=== PATIENT | male | born 2005 | race Caucasian/White ===

== ENCOUNTER 2023-08-12 16:40 | Outpatient (CLI) | payer BC, SELFPAY | END 2023-08-12 16:41 | disposition home or self-care (01) | PROVIDERS: Visit Provider Nurse Practitioner Family | DX: E10.9 Type 1 diabetes mellitus without complications (principal); E03.9 Hypothyroidism, unspecified | CPT/HCPCS: 80053; 84439; 84443 ==

== ENCOUNTER 2023-11-26 13:29 | Outpatient (CLI) | payer MEDICAID, SELFPAY ==
--- OUTSIDE RECORDS SUMMARY | 2023-11-26 13:34 | XMS_ITS | Clinical Summary ---
Author Organization [facility] Address [address] [place] [address]. [place] [address] Care Team Providers Care Caser In Name Role Phone Clinic, [facility] Agustin Primary Care Provider Allergies Active Allergy Reactions Criticality Noted Date Comments Amoxicillin Angioedema High 05/18/2017 Swelling in throat as baby after amoxicillin Penicillins Other (See Comments) High 05/18/2017 Per mom, patient has not had penicillin. They avoid it d/t swelling in throat as baby after amoxicillin. Medications Medication Sig Dispensed Refills Start Date End Date Status insulin lispro (HUMALOG KWIKPEN) 100 UNIT/ML injection Inject subcutaneously as needed (if insulin pump fails) Active Insulin Glargine (BASAGLAR KWIKPEN SC) Inject 18 Units Subcutaneous daily as needed If insulin pump failure Active levothyroxine (SYNTHROID/LEVOTHR OID) 112 MCG tablet Take 112 mcg by mouth daily Active INSULIN PUMP - OUTPATIENT Date Last Updated: 03/05/2023 [employer] BASAL RATES and times: 0.96 units/hour Carb ratio: 7 Active insulin lispro (HUMALOG VIAL) 100 UNIT/ML vial Inject subcutaneously See Admin Instructions insulin pump fill Active Active Problems Problem Noted Date Diagnosed Date DKA (diabetic ketoacidosis) 11/17/2023 Diabetic ketoacidosis withou t coma associated with type 1 diabetes mellitus 03/05/2023 Encounters Date Type Department Care Team Description 11/17/2023 2:26 PM CDT - 11/18/2023 3:22 PM CDT Hospital Encounter [facility] Med Surg [address] [place] [phone] Darrius Ba MD [facility], MD Samuel Discharge Disposition: Left Against Medical Advice 11/17/2023 6:50 AM CDT - 11/17/2023 2:01 PM CDT Emergency [facility] Emergency Dept [address] [place] [address] Kenzie Koroma MD Type 1 diabetes mellitus with ketoacidosis without coma (H); Leukocytosis, unspecified type; YADI (acute kidney injury) (H24) Discharge Disposition: Short Term Hospital 11/17/2023 Travel from Last 3 Months Social History Tobacco Use Types Packs/Day Years Used Date Smoking Tobacco: Passive Smo ke Exposure - Never Smoker Smokeless Tobacco: Never Alcohol Use Standard Drinks/Week Comments No 0 (1 standard drink = 0.6 oz pur e alcohol) Adolescent Education Answer Date Record ed Getting School Help Needed Not on file 02/23 Sex and Gender Information Value Date Recorded Sex Assigned at Not on file Gender Identity Not on file Sexual Orientation Not on file Last Filed Vital Signs Vital Sign Reading Time Taken Comments Blood Pressure 123/89 11/17/2023 11:51 PM CDT Pulse 79 11/17/2023 11:51 PM CDT Temperature 37.3 ??C (99.2 ??F) 11/18/2023 5:18 AM CD T Respiratory Rate 16 11/18/2023 5:18 AM CDT Oxygen Saturation 100% 11/17/2023 11:51 PM CDT Inhaled Oxygen Concentration - - Weight 47.6 kg (105 lb) 11/17/2023 6:47 AM CDT Height 162.6 cm (5' 4) 11/17/2023 6:47 AM CDT Body Mass Index 18.02 11/17/2023 6:47 AM CDT Plan of Treatment Health Maintenance Due Date Last Done Comments ADVANCE CARE PLANNING 2003 ANNUAL REVIEW OF HM ORDERS 2003 DIABETIC FOOT EXAM 2003 EYE EXAM 2003 LIPID 2003 MICROALBUMIN 2003 YEARLY PREVENTIVE VISIT 2003 Pneumococcal Vaccine: Pediatrics (0 to 5 Years) and At-Risk Patients (6 to 64 Years) (1 of 2 - PCV) 10/17/2009 02/11/2005, 09/04/2004, 03/05/2004, Additional history exists HIV SCREENING 10/17/2018 HPV IMMUNIZATION (1 - Male 3-dose series) 10/17/2018 HEPATITIS C SCREENING 10/17/2021 COVID-19 Vaccine (1 - season) 2023 PHQ-2 (once per calendar year) 2023 INFLUENZA VACCINE (#1) 2024 02/01/2019, 2011 A1C 02/17/2024 11/17/2023, 03/05/2023 TSH W/FREE T4 REFLEX 11/16/2024 11/17/2023, 11/17/19 24 BMP 11/17/2024 11/18/2023, 11/07, 11/17/2023, Additional history exists DTAP/TDAP/TD IMMUNIZATION (7 - Td or Tdap) 01/01/2027 01/01/2017, 01/09/2010, 02/11/2005, Additional history exists HEPATITIS B IMMUNIZATION Completed 005, 03/05/2004, 2003 IPV IMMUNIZATION Completed 01/09/2010, 09/2004, 03/05/2004, Additional history exists MENINGITIS IMMUNIZATION Aged Out 01/01/2017 No l onger eligible based on patient's age to complete this topic RSV MONOCLONAL ANTIBODY Aged Out No l onger eligible based on patient's age to complete this topic Procedures Procedure Name Priority Date/Time Associated Diagnosis Comments GLUCOSE BY METER Routine 11/18/2023 2:32 PM CDT GLUCOSE BY METER Routine 11/18/2023 1:57 PM CDT GLUCOSE BY METER Routine 11/18/2023 12:4 9 PM CDT GLUCOSE BY METER Routine 11/18/2023 11:4 7 AM CDT KETONE BETA-HYDROXYBUTYRATE QUANTITATIVE, RAPID Routine 11/18/2023 11:18 AM CDT BASIC METABOLIC PANEL Routine 11/18/2023 11:18 AM CDT GLUCOSE BY METER Routine 11/18/2023 11:1 3 AM CDT GLUCOSE BY METER Routine 11/18/2023 10:1 2 AM CDT GLUCOSE BY METER Routine 11/18/2023 8:33 AM CDT GLUCOSE BY METER Routine 11/18/2023 7:11 AM CDT GLUCOSE BY METER Routine 11/18/2023 6:31 AM CDT GLUCOSE BY METER Routine 11/18/2023 5:25 AM CDT PHOSPHORUS Timed 11/18/2023 5:25 AM CDT KETONE BETA-HYDROXYBUTYRATE QUANTITATIVE, RAPID Timed 11/18/2023 5:25 AM CDT CBC WITH PLATELETS Routine 11/18/2023 5: 25 AM CDT BASIC METABOLIC PANEL Timed 11/18/2023 5:25 AM CDT GLUCOSE BY METER Routine 11/18/2023 4:09 AM CDT GLUCOSE BY METER Routine 11/18/2023 2:53 AM CDT GLUCOSE BY METER Routine 11/18/2023 2:13 AM CDT GLUCOSE BY METER Routine 11/18/2023 1:13 AM CDT BASIC METABOLIC PANEL Timed 11/17/2023 11:47 PM CDT KETONE BETA-HYDROXYBUTYRATE QUANTITATIVE, RAPID Timed 11/17/2023 11:47 PM CDT PHOSPHORUS Timed 11/17/2023 11:47 PM CDT GLUCOSE BY METER Routine 11/17/2023 11:4 6 PM CDT GLUCOSE BY METER Routine 11/17/2023 11:2 9 PM CDT GLUCOSE BY METER Routine 11/17/2023 10:3 2 PM CDT BLOOD GAS VENOUS Timed 11/17/2023 10:0 5 PM CDT PHOSPHORUS Timed 11/17/2023 10:05 PM CDT KETONE BETA-HYDROXYBUTYRATE QUANTITATIVE, RAPID Timed 11/17/2023 10:05 PM CDT BASIC METABOLIC PANEL Timed 11/17/2023 10:05 PM CDT GLUCOSE BY METER Routine 11/17/2023 9:30 PM CDT GLUCOSE BY METER Routine 11/17/2023 8:35 PM CDT GLUCOSE BY METER Routine 11/17/2023 7:35 PM CDT GLUCOSE BY METER Routine 11/17/2023 6:39 PM CDT BLOOD GAS VENOUS Timed 11/17/2023 6:12 PM CDT PHOSPHORUS Timed 11/17/2023 6:09 PM CDT KETONE BETA-HYDROXYBUTYRATE QUANTITATIVE, RAPID Timed 11/17/2023 6:09 PM CDT BASIC METABOLIC PANEL Timed 11/17/2023 6:09 PM CDT ROUTINE UA WITH MICROSCOPIC REFLEX TO CULTURE Routine 11/17/2023 5:50 PM CDT GLUCOSE BY METER Routine 11/17/2023 5:34 PM CDT GLUCOSE BY METER Routine 11/17/2023 4:33 PM CDT EKG 12-LEAD, TRACING ONLY Routine 11/17/2023 3:43 PM CDT CBC WITH PLATELETS & DIFFERENTIAL STAT 11/17/2023 3:39 PM CDT BLOOD GAS VENOUS STAT 11/17/2023 3:39 PM CDT CBC WITH PLATELETS AND DIFFERENTIAL STAT 11/17/2023 3:39 PM CDT LACTIC ACID WHOLE BLOOD STAT 11/17/2023 3:39 PM CDT HEPATIC FUNCTION PANEL STAT 11/17/2023 3:39 PM CDT MAGNESIUM STAT 11/17/2023 3:39 PM CDT PHOSPHORUS STAT 11/17/2023 3:39 PM CDT OSMOLALITY STAT 11/17/2023 3:39 PM CDT KETONE BETA-HYDROXYBUTYRATE QUANTITATIVE, RAPID STAT 11/17/2023 3:39 PM CDT BASIC METABOLIC PANEL STAT 11/17/2023 3:39 PM CDT GLUCOSE BY METER Routine 11/17/2023 3:28 PM CDT GLUCOSE BY METER Routine 11/17/2023 2:30 PM CDT GLUCOSE BY METER STAT 11/17/2023 1:02 PM CDT GLUCOSE BY METER STAT 11/17/2023 12:0 8 PM CDT GLUCOSE BY METER STAT 11/17/2023 11:0 9 AM CDT GLUCOSE BY METER STAT 11/17/2023 10:2 4 AM CDT GLUCOSE BY METER STAT 11/17/2023 9:32 AM CDT LACTIC ACID WHOLE BLOOD STAT 11/17/2023 8:51 AM CDT XR CHEST PORT 1 VIEW STAT 11/17/2023 7:43 AM CDT ISTAT GASES LACTATE VENOUS POCT STAT 11/17/2023 7:05 AM CDT CBC WITH PLATELETS & DIFFERENTIAL STAT 11/17/2023 6:58 AM CDT T4 FREE STAT 11/17/2023 6:58 AM CDT MANUAL DIFFERENTIAL STAT 11/17/2023 6 :58 AM CDT TSH WITH FREE T4 REFLEX STAT 11/17/2023 6:58 AM CDT CBC WITH PLATELETS AND DIFFERENTIAL STAT 11/17/2023 6:58 AM CDT LIPASE STAT 11/17/2023 6:58 AM CDT MAGNESIUM STAT 11/17/2023 6:58 AM CDT BASIC METABOLIC PANEL STAT 11/17/2023 6:58 AM CDT KETONE BETA-HYDROXYBUTYRATE QUANTITATIVE, RAPID STAT 11/17/2023 6:58 AM CDT HEMOGLOBIN A1C STAT 11/17/2023 6:58 AM CDT EXTRA HEPARINIZED SYRINGE STAT 11/17/2023 6:58 AM CDT EXTRA PURPLE TOP TUBE STAT 11/17/2023 6:58 AM CDT EXTRA GREEN TOP (LITHIUM HEPARIN) TUBE STAT 11/17/2023 6:58 AM CDT EXTRA RED TOP TUBE STAT 11/17/2023 6: 58 AM CDT EKG 12-LEAD, TRACING ONLY STAT 11/17/2023 6:53 AM CDT GLUCOSE BY METER STAT 11/17/2023 6:47 AM CDT from Last 3 Months Results * (ABNORMAL) Glucose by meter (11/18/2023 2:32 PM CDT) Only the most recent of31 resultswithin the time period is included. GLUCOSE BY METER POCT 118(H) 70 - 99 mg/dL 11/18/2023 2:39 PM CDT UR LAB[facility]ATORY POC Blood, Capillary BLOOD SPECIMEN / Unknown 11/18/2023 2:32 PM CDT 11/18/2023 2:39 PM CDT Darrius Ba MD LAB - BEAKER POCT UR LAB[facility]ATORY POC [facility] [address] [place] [address], [address] * (ABNORMAL) Ketone Beta-Hydroxybutyrate Quantitative (11/18/2023 11:18 AM CDT) Only the most recent of7 resultswithin the time period is included. Ketone (Beta-Hydroxybut yrate) Quantitative 2.70(HH) <=0.30 mmol/L 11/18/2023 12:21 PM CDT UR LAB[facility]ATORY Blood STRUCTURE OF RIGHT UPPER LIMB / Unknown Venipuncture / Unknown 11/18/2023 11:18 AM CDT 11/18/2023 11:38 AM CDT Jocelynn Grover PA-C LAB - BLOOD ORDERABL ES Performing Organization Address City/[facility]/ZIP Co de Phone Number UR LABORATORY [facility] [address] [place] [address], [address] * (ABNORMAL) Basic metabolic panel (11/18/2023 11:18 AM CDT) Only the most recent of7 resultswithin the time period is included. Sodium 145 135 - 145 mmol/L 11/18/2023 11:59 AM CDT UR LABORATORY Potassium 3.5 3.4 - 5.3 mmol/L 11/18/2023 11:59 AM CDT UR LAB[facility]ORY Chloride 112(H) 98 - 107 mmol/L 11/18/2023 11:59 AM CDT UR [facility] Carbon Dioxide (CO2) 21(L) 22 - 29 mmol/L 11/18/2023 11:59 AM CDT UR LAB[facility]ORY Anion Gap 12 7 - 15 mmol/L 11/18/2023 11:59 AM CDT [facility] Urea Nitrogen 13.8 6.0 - 20.0 mg/dL 11/18/2023 11:59 AM CDT UR LAB[facility]ATORY Creatinine 0.76 0.67 - 1.17 mg/dL 11/18/2023 11:59 AM CDT UR LAB[facility]ATORY GFR Estimate >90 >60 mL/min/1.7 3m2 11/18/2023 11:59 AM CDT [facility] LAB[facility] Comment:eGFR calculated 2020 CKD-EPI equation. Calcium 9.3 8.6 - 10.0 mg/dL 11/18/2023 11:59 AM CDT UR LAB[facility]ATORY Glucose 113(H) 70 - 99 mg/dL 11/18/2023 11:59 AM CDT UR [facility] Blood STRUCTURE OF RIGHT UPPER LIMB / Unknown Venipuncture / Unknown 11/18/2023 11:18 AM CDT 11/18/2023 11:38 AM CDT Jocelynn Grover PA-C LAB - BLOOD ORDERABL ES UR LABORATORY [facility] [address] [facility], [address] [place] [address], [facility] * (ABNORMAL) Phosphorus (11/18/2023 5:25 AM CDT) Only the most recent of5 resultswithin the time period is included. Phosphorus 1.0(L) 2.5 - 4.5 mg/dL 11/18/2023 6:41 AM CDT [facility] Blood STRUCTURE OF RIGHT HAND / Unknown Venipuncture / Unknown 11/18/2023 5:25 AM CDT 11/18/2023 6:11 AM CDT Darrius Ba MD LAB - BLOOD ORDERA BLES UR LABORATORY [facility] [address] [place] [address], [address] [phone] * (ABNORMAL) CBC with platelets (11/18/2023 5:25 AM CDT) Pathologist [facility] WBC Count 12.8(H) 4.0 - 11.0 10e3/uL 11/18/2023 6:22 AM CDT UR LAB[facility]ATORY RBC Count 4.39(L) 4.40 - 5.90 10e6/uL 11/18/2023 6:22 AM CDT [facility] Hemoglobin 13.7 13.3 - 17.7 g/dL 11/18/2023 6:22 AM CDT UR LAB[facility]ORY Hematocrit 39.3(L) 40.0 - 53.0 % 11/18/2023 6:22 AM CDT UR LAB[facility]ORY MCV 90 78 - 100 fL 11/18/2023 6:22 AM CDT UR LAB[facility]ORY MCH 31.2 26.5 - 33.0 pg 11/18/2023 6:22 AM CDT UR LAB[facility] MCHC 34.9 31.5 - 36.5 g/dL 11/18/2023 6:22 AM CDT UR LAB[facility]ORY RDW 12.1 10.0 - 15.0 % 11/18/2023 6:22 AM CDT UR LAB[facility] Platelet Count 257 150 - 450 10e3/uL 11/18/2023 6:22 AM CDT UR LAB[facility] Blood STRUCTURE OF RIGHT HAND / Unknown Venipuncture / Unknown 11/18/2023 5:25 AM CDT 11/18/2023 6:11 AM CDT Darrius Ba MD LAB - BLOOD ORDERA BLES UR LABORATORY [facility] [facility], [address] [place] [address] * (ABNORMAL) Blood gas venous (11/17/2023 10:05 PM CDT) Only the most recent of3 resultswithin the time period is included. pH Venous 7.34 7.32 - 7.43 11/17/2023 10:11 PM CDT UR LAB[facility]ORY pCO2 Venous 37(L) 40 - 50 mm Hg 11/17/2023 10:11 PM CDT UR LAB[facility] pO2 Venous 38 25 - 47 mm Hg 11/17/2023 10:11 PM CDT [facility] Bicarbonate Venous 20(L) 21 - 28 mmol/L 11/17/2023 10:11 PM CDT UR LAB[facility]ORY Base Excess/Deficit Venous -5.4(L) -3.0 - 3.0 mmol/L 11/17/2023 10:11 PM CDT UR LAB[facility]ATORY FIO2 21 RENÉ 11/17/2023 10:11 PM CDT [facility] LAB[facility]ORY Oxyhemoglobin Venous 77(H) 70 - 75 % 11/17/2023 10:11 PM CDT [facility] O2 Sat, Venous 78.3(H) 70.0 - 75.0 % 11/17/2023 10:11 PM CDT [facility] LAB[facility] Blood, venous STRUCTURE OF RIGHT UPPER LIMB / Unknown Venipuncture / Unknown 11/17/2023 10:05 PM CDT 11/17/2023 10:10 PM CDT Narrative UR LABORATORY - 11/17/2023 10:11 PM CDT In healthy individuals, oxyhemoglobin (O2Hb) and oxygen saturation (SO2) are approximately equal. In the presence of dyshemoglobins, oxyhemoglobin can be considerably lower than oxygen saturation. Zahida RICHARDSON LAB - BLOOD ORDERABL ES UR LABORATORY [facility] [address] [facility], [address] [place] [address] * (ABNORMAL) UA with Microscopic reflex to Culture (11/17/2023 5:50 PM CDT) Color Urine Yellow Colorless, Straw, Light Yellow, Yellow 11/17/2023 6:13 PM CDT UR LAB[facility] Appearance Urine Clear Clear 11/17/19 24 6:13 PM CDT UR LAB[facility]ORY Glucose Urine 300(A) Negative mg/dL 11/17/2023 6:13 PM CDT UR [facility] Bilirubin Urine Negative Negative 6:13 PM CDT UR LAB[facility]ATORY Ketones Urine 40(A) Negative mg/dL 11/17/2023 6:13 PM CDT UR LAB[facility]ATORY Specific Morris Urine 1.023 1.003 - 1.035 11/17/2023 6:13 PM CDT UR LAB[facility]ORY Blood Urine Moderate(A) Negative 11/17/2023 6:13 PM CDT UR LAB[facility] pH Urine 6.5 5.0 - 7.0 11/17/2023 6:13 PM CDT [facility] LAB[facility] Protein Albumin Urine >600(A) Negative mg/dL 11/17/2023 6:13 PM CDT [facility] LAB[facility] Urobilinogen Urine Normal Normal, 2.0 mg/dL 11/17/2023 6:13 PM CDT [facility] LAB[facility] Nitrite Urine Negative Negative 11/17/2023 6:13 PM CDT [facility] LAB[facility] Leukocyte Esterase Urine Negative Negative 11/17/2023 6:13 PM CDT UR LAB[facility] Mucus Urine Present(A) None Seen /LPF 11/17/2023 6:13 PM CDT UR LAB[facility] RBC Urine 1 <=2 /HPF 11/17/2023 6:13 PM CDT UR LAB[facility] WBC Urine 7(H) <=5 /HPF 11/17/2023 6:13 PM CDT UR LAB[facility]ORY Hyaline Casts Urine 9(H) <=2 /LPF 11/17/2023 6:13 PM CDT UR LAB[facility]ORY Urine URINE SPECIMEN OBTAINED BY CLEAN CATCH PROCEDURE / Unknown Non-blood Collection / Unknown 11/17/2023 5:50 PM CDT 11/17/2023 5:59 PM CDT Narrative UR LAB[facility]ATORY - 11/17/2023 6:13 PM CDT Urine Culture not indicated Zahida RICHARDSON LAB - URINE ORDERABL ES UR LABORATORY [facility] [address] [facility], [address] [place] [address], [facility] * EKG 12-lead, tracing only - DKA (11/17/2023 3:43 PM CDT) Only the most recent of2 resultswithin the time period is included. Systolic Blood Pressure mmHg RADIOLOGY RESULTS Diastolic Blood Pressure mmHg RADIOLOGY RESULTS Ventricular Rate 81 BPM RAD IOLOGY RESULTS Atrial Rate 81 BPM RADIOLOG Y RESULTS WY Interval 116 ms RADIOLOG Y RESULTS QRS Duration 80 ms RADIOLO GY RESULTS QT 366 ms RADIOLOGY RESULTS QTc 425 ms RADIOLOGY RESULTS P [employer] 83 degrees RADIOLOGY RESULTS R AXIS 52 degrees RADIOLOGY RESULTS T [employer] 64 degrees RADIOLOGY RESULTS Interpretation ECG Sinus rhythm When compared with ECG of 17-NOV-2023 06:53, Vent. rate has decreased BY ??54 BPM Non-specific change in ST segment in Inferior leads ST elevation now present in Lateral leads Nonspecific T wave abnormality no longer evident in Lateral leads Confirmed by MD ALISSA, JESS ([id number]) on 11/18/2023 10:08:33 AM RADIOLOGY RESULTS 11/17/2023 3:43 PM CDT 11/18/2023 10:08 AM CDT Zahida RICHARDSON ECG ORDERABLES RADIOLOGY RESULTS * (ABNORMAL) CBC with platelets and differential (11/17/2023 3:39 PM CDT) Only the most recent of2 resultswithin the time period is included. WBC Count 15.1(H) 4.0 - 11.0 10e3/uL 11/17/2023 3:50 PM CDT UR LAB[facility]ATORY RBC Count 4.75 4.40 - 5.90 10e6/uL 11/17/2023 3:50 PM CDT UR LAB[facility]ORY Hemoglobin 14.9 13.3 - 17.7 g/dL 11/17/2023 3:50 PM CDT UR LAB[facility]ATORY Hematocrit 42.4 40.0 - 53.0 % 11/17/2023 3:50 PM CDT UR LAB[facility]ATORY MCV 89 78 - 100 fL 11/17/2023 3:50 PM CDT UR LAB[facility]ATORY MCH 31.4 26.5 - 33.0 pg 11/17/2023 3:50 PM CDT UR LAB[facility]ORY MCHC 35.1 31.5 - 36.5 g/dL 11/17/2023 3:50 PM CDT UR LAB[facility]ORY RDW 11.9 10.0 - 15.0 % 11/17/2023 3:50 PM CDT UR LAB[facility] Platelet Count 298 150 - 450 10e3/uL 11/17/2023 3:50 PM CDT UR LAB[facility] % Neutrophils 85 % 11/17/2023 3:50 PM CDT UR [facility] % Lymphocytes 6 % 11/17/2023 3:50 PM CDT UR [facility] % Monocytes 7 % 11/17/2023 3:50 PM CDT UR [facility] % Eosinophils 0 % 11/17/2023 3:50 PM CDT UR [facility] % Basophils 0 % 11/17/2023 3:50 PM CDT UR LAB[facility] % Immature Granulocytes 2 % 11/17/2023 3:50 PM CDT UR LAB[facility]ATORY NRBCs per 100 WBC 0 <1 /100 024 3:50 PM CDT UR LAB[facility]ATORY Absolute Neutrophils 12.8(H) 1.6 - 8.3 10e3/uL 11/17/2023 3:50 PM CDT UR LAB[facility]ORY Absolute Lymphocytes 0.9 0.8 - 5.3 10e3/uL 11/17/2023 3:50 PM CDT UR LAB[facility] Absolute Monocytes 1.0 0.0 - 1.3 10e3/uL 11/17/2023 3:50 PM CDT UR LAB[facility]ORY Absolute Eosinophils 0.0 0.0 - 0.7 10e3/uL 11/17/2023 3:50 PM CDT UR LAB[facility]ORY Absolute Basophils 0.0 0.0 - 0.2 10e3/uL 11/17/2023 3:50 PM CDT UR LAB[facility] Absolute Immature Granulocytes 0.3 <=0.4 10e3/uL 11/17/2023 3:50 PM CDT UR LAB[facility]ORY Absolute NRBCs 0.0 10e3/uL 11/17/2023 3:50 PM CDT UR LAB[facility]ORY Blood STRUCTURE OF RIGHT UPPER LIMB / Unknown Venipuncture / Unknown 11/17/2023 3:39 PM CDT 11/17/2023 3:46 PM CDT Zahida RICHARDSON LAB - BLOOD ORDERABL ES UR LABORATORY [facility] [address] [facility], [address] [place] [phone] [place] [address] * (ABNORMAL) Osmolality (11/17/2023 3:39 PM CDT) Pathologist [facility] Osmolality Blood 310(H) 275 - 295 mmol/kg 11/17/2023 4:13 PM CDT UR LABORATORY Blood STRUCTURE OF RIGHT UPPER LIMB / Unknown Venipuncture / Unknown 11/17/2023 3:39 PM CDT 11/17/2023 3:47 PM CDT Narrative UR LABORATORY - 11/17/2023 4:13 PM CDT Greater than 385 mmol/kg relates to stupor in hyperglycemia Greater than 400 mmol/kg can relate to seizures Greater than 420 mmol/kg can be lethal Serum Osmalar Gap: Normal <10 Larger suggest unmeasured substances present in serum (ethanol, methanol, isopropanol, mannitol, ethylene glycol). Zahida RICHARDSON LAB - BLOOD ORDERABL ES Performing Organization Address City/[facility]/ZIP Co de Phone Number UR LABORATORY [facility] [address] [place] [address], [address] * Magnesium (11/17/2023 3:39 PM CDT) Only the most recent of2 resultswithin the time period is included. [facility] Magnesium 2.2 1.7 - 2.3 mg/dL 11/17/2023 5:26 PM CDT UR LABORATORY Blood STRUCTURE OF RIGHT UPPER LIMB / Unknown Venipuncture / Unknown 11/17/2023 3:39 PM CDT 11/17/2023 5:08 PM CDT Zahida RICHARDSON LAB - BLOOD ORDERABL ES UR LABORATORY [facility] [address] [place] [address], Room [place] [id number] * Lactic acid whole blood (11/17/2023 3:39 PM CDT) Only the most recent of2 resultswithin the time period is included. [facility] Lactic Acid 1.1 0.7 - 2.0 mmol/L 11/17/2023 3:49 PM CDT UR LAB[facility]ATORY Blood STRUCTURE OF RIGHT UPPER LIMB / Unknown Venipuncture / Unknown 11/17/2023 3:39 PM CDT 11/17/2023 3:46 PM CDT Zahida RICHARDSON LAB - BLOOD ORDERABL ES UR LABORATORY [facility] [address] [facility], [address] [place] [address] * (ABNORMAL) Hepatic panel (11/17/2023 3:39 PM CDT) Protein Total 6.0(L) 6.4 - 8.3 g/dL 11/17/2023 5:26 PM CDT UR LAB[facility]ATORY Albumin 3.7 3.5 - 5.2 g/dL 11/17/2023 5:26 PM CDT UR LAB[facility]ATORY Bilirubin Total 0.4 <=1.2 mg/dL 11/17/2023 5:26 PM CDT UR LAB[facility]ORY Alkaline Phosphatase 94 40 - 150 U/L 11/17/2023 5:26 PM CDT UR LAB[facility]ATORY AST 17 0 - 45 U/L 11/17/2023 5:26 PM CDT UR LAB[facility]ATORY Comment:Reference intervals for this test were updated on 10/19/2022 to more accurately reflect our healthy population. There may be differences in the flagging of prior results with similar values performed with this method. Interpretation of those prior results can be made in the context of the updated reference intervals. ALT 11 0 - 70 U/L 11/17/2023 5:26 PM CDT UR LAB[facility]ORY Comment:Reference intervals for this test were updated on 10/19/2022 to more accurately reflect our healthy population. There may be differences in the flagging of prior results with similar values performed with this method. Interpretation of those prior results can be made in the context of the updated reference intervals. Bilirubin Direct <0.20 0.00 - 0.30 mg/dL 11/17/2023 5:26 PM CDT UR LAB[facility]ORY Blood STRUCTURE OF RIGHT UPPER LIMB / Unknown Venipuncture / Unknown 11/17/2023 3:39 PM CDT 11/17/2023 5:08 PM CDT Zahida RICHARDSON LAB - BLOOD ORDERABL ES UR LABORATORY [facility] [address] [facility], [address] [place] [phone] * XR Chest Port 1 View (11/17/2023 7:43 AM CDT) Anatomical Region Laterality Modality Chest Digital Radiogra phy Impressions 11/17/2023 7:49 AM CDT IMPRESSION: Negative chest. EMELY CUEVA MD SYSTEM ID: [id number] Narrative 11/17/2023 7:49 AM CDT XR CHEST PORT 1 VIEW 11/17/2023 7:43 AM ?? INDICATION: DKA, vomiting, tachycardic COMPARISON: 03/05/2023 Procedure Note Emely Cueva MD - 11/17/2023 XR CHEST PORT 1 VIEW 11/17/2023 7:43 AM INDICATION: DKA, vomiting, tachycardic COMPARISON: 03/05/2023 IMPRESSION: Negative chest. EMELY CUEVA MD SYSTEM ID: [id number] Kenzie Koroma MD IMG DIAGNOSTIC I MAGING ORDERABLES * (ABNORMAL) iStat Gases (lactate) venous, POCT (11/17/2023 7:05 AM CDT) Lactic Acid POCT 5.7(HH) <=2.0 mmol/L 11/17/2023 7:26 AM CDT [facility] Comment:--- Bicarbonate Venous POCT 11(L) 21 - 28 mmol/L 11/17/2023 7:26 AM CDT [facility] Comment:--- O2 Sat, Venous POCT 52(L) 70 - 75 % 11/17/2023 7:26 AM CDT [facility] Comment:--- pCO2 Venous POCT 33(L) 40 - 50 mm Hg 11/17/2023 7:26 AM CDT [facility] Comment:--- pH Venous POCT 7.15(LL) 7.32 - 7.43 11/17/2023 7:26 AM CDT [facility] Comment:--- pO2 Venous POCT 35 25 - 47 mm Hg 11/17/2023 7:26 AM CDT [facility] Comment:--- Blood, venous BLOOD SPECIMEN / Unknown 11/17/2023 7:05 AM CDT 11/17/2023 7:26 AM CDT Kenzie Koroma MD LAB - [facility] POC T [facility] P[facility] [address] [facility] (1st floor, no room number) [place] [id number] * (ABNORMAL) Manual Differential (11/17/2023 6:58 AM CDT) % Neutrophils 77 % RENÉ 11/19/2023 10:28 AM CDT [facility] % Lymphocytes 10 % RENÉ 11/19/2023 10:28 AM CDT [facility] % Monocytes 12 % RENÉ 11/19/2023 10:28 AM CDT [facility] % Eosinophils 0 % RENÉ 11/19/2023 10:28 AM CDT [facility] % Basophils 0 % RENÉ 11/19/2023 10:28 AM CDT [facility] % Metamyelocytes 1 % RENÉ 11/19/2023 10:28 AM CDT [facility] Absolute Neutrophils 21.6(H) 1.6 - 8.3 10e3/uL RENÉ 11/19/2023 10:28 AM CDT [facility] Absolute Lymphocytes 2.8 0.8 - 5.3 10e3/uL RENÉ 11/19/2023 10:28 AM CDT [facility] Absolute Monocytes 3.4(H) 0.0 - 1.3 10e3/uL RENÉ 11/19/2023 10:28 AM CDT [facility] Absolute Eosinophils 0.0 0.0 - 0.7 10e3/uL RENÉ 11/19/2023 10:28 AM CDT [facility] Absolute Basophils 0.0 0.0 - 0.2 10e3/uL RENÉ 11/19/2023 10:28 AM CDT [facility] Absolute Metamyelocytes 0.3(H) <=0.0 10e3/uL [facility] 11/19/2023 10:28 AM CDT [facility] RBC Morphology Confirmed RBC Indices [facility] 11/19/2023 10:28 AM CDT [facility] Platelet Assessment Automated Count Confirmed. Platelet morphology is normal. Automated Count Confirmed. Platelet morphology is normal. [facility] 11/19/2023 10:28 AM CDT [facility] Pathologist Review Comments (Blood) [facility] 11/19/2023 10:28 AM CDT [facility] Comment:Reviewed and Differe ntial is confirmed. No additional comments. Slide reviewed by pathologist, Prem Jernigan MD on 11/18/2023. Blood BLOOD SPECIMEN / Unknown Venipuncture / Unknown 11/17/2023 6:58 AM CDT 11/17/2023 7:02 AM CDT Narrative [facility] - 11/19/2023 10:28 AM CDT Manual Differential results were performed, reported preliminary, and deferred by Tech. FIELDS on 11/17/23 Kenzie Koroma MD LAB - BLOOD DOREEN DALEY [facility] Lab [address] Lab (1st floor, no room number) [place] [address] * Extra Heparinized Syringe (11/17/2023 6:58 AM CDT) Hold Specimen RECEIVED. 11/17/2023 7:29 AM CDT [facility] Blood, venous BLOOD SPECIMEN / Unknown Venipuncture / Unknown 11/17/2023 6:58 AM CDT 11/17/2023 7:06 AM CDT Kenzie Koroma MD LAB - BLOOD DOREEN DALEY [facility] [address] Lab (1st floor, no room number) [place] [address] * Extra Purple Top Tube (11/17/2023 6:58 AM CDT) Hold Specimen JIC 11/17/2023 8:06 AM CDT [facility] Blood BLOOD SPECIMEN / Unknown Venipuncture / Unknown 11/17/2023 6:58 AM CDT 11/17/2023 7:02 AM CDT Kenzie Koroma MD LAB - BLOOD DOREEN DALEY [facility] [address] Lab (1st floor, no room number) [address] * Extra Green Top ([place] Heparin) Tube (11/17/2023 6:58 AM CDT) Hold Specimen [facility] 11/17/2023 8:06 AM CDT [facility] Blood BLOOD SPECIMEN / Unknown Venipuncture / Unknown 11/17/2023 6:58 AM CDT 11/17/2023 7:02 AM CDT Kenzie Koroma MD LAB - BLOOD DOREEN DALEY [facility] Lab [address] Lab (1st floor, no room number) [address] * Extra Red Top Tube (11/17/2023 6:58 AM CDT) Hold Specimen [facility] 11/17/2023 8:06 AM CDT [facility] Blood BLOOD SPECIMEN / Unknown Venipuncture / Unknown 11/17/2023 6:58 AM CDT 11/17/2023 7:01 AM CDT Kenzie Koroma MD LAB - BLOOD DOREEN DALEY [facility] [address] Lab (1st floor, no room number) [address] * (ABNORMAL) TSH with free T4 reflex (11/17/2023 6:58 AM CDT) TSH 5.54(H) 0.30 - 4.20 uIU/mL 11/17/2023 8:05 AM CDT [facility] Blood BLOOD SPECIMEN / Unknown Venipuncture / Unknown 11/17/2023 6:58 AM CDT 11/17/2023 7:02 AM CDT Kenzie Koroma MD LAB - BLOOD DOREEN DALEY [facility] [address] Lab (1st floor, no room number) [place] [address], [facility] * T4 free (11/17/2023 6:58 AM CDT) [facility] Free T4 1.00 0.90 - 1.70 ng/dL 11/17/2023 9:06 AM CDT [facility] Blood BLOOD SPECIMEN / Unknown Venipuncture / Unknown 11/17/2023 6:58 AM CDT 11/17/2023 7:02 AM CDT Kenzie Koroma MD LAB - BLOOD DOREEN DALEY [facility] [address] Lab (1st floor, no room number) [place] [address], [facility] * (ABNORMAL) Lipase (11/17/2023 6:58 AM CDT) [facility] Lipase 12(L) 13 - 60 U/L 11/17/2023 7:26 AM CDT [facility] Blood BLOOD SPECIMEN / Unknown Venipuncture / Unknown 11/17/2023 6:58 AM CDT 11/17/2023 7:02 AM CDT Kenzie Koroma MD LAB - BLOOD DOREEN DALEY [facility] [address] Lab (1st floor, no room number) [place] [address] * (ABNORMAL) Hemoglobin A1c (11/17/2023 6:58 AM CDT) Hemoglobin A1C 12.9(H) <5.7 % 11/17/2023 10:12 AM CDT LABORATORY Comment: Normal <5.7% Prediabetes 5.7-6.4% ?? Diabetes 6.5% or higher Note: Adopted from ADA consensus guidelines. Blood BLOOD SPECIMEN / Unknown Venipuncture / Unknown 11/17/2023 6:58 AM CDT 11/17/2023 7:02 AM CDT Kenzie Koroma MD LAB - BLOOD DOREEN DALEY LABORATORY [facility] [address] Lab (1st floor, no room number) [place] [address], [facility] from Last 3 Months Advance Directives For more information, please contact: [phone] * Full Code (Latest Code Status on File) Date Activated Date Inactivated Comments 11/17/2023 3:49 PM 11/18/2023 5:22 PM All basic an d advanced life-sustaining interventions are performed as appropriate Question Answer Comments Code status determined by: Discussion with racquel joseph/ legal decision maker * Full Code Date Activated Date Inactivated Comments 03/05/2023 12:49 PM 03/06/2023 2:49 PM All basic and advanced life-sustaining interventions are performed as appropriate Question Answer Comments Code status determined by: Discussion with racquel joseph/ legal decision maker Care Teams Caser In Relationship Specialty Start Date End Date Clinic, [facility] [address] [place] [address] PCP - General 05/18/17
--- OUTSIDE RECORDS SUMMARY | 2023-11-26 13:34 | XMS_ITS | Referral Summary ---
Author Organization [facility] Address [address] [place] [address]. [place] [address] Care Team Providers Care Test Carrier Name Role Phone Clinic, [facility] Primary Care Provider Encounters Date Type Department Care Team Description 11/17/2023 2:26 PM CDT - 11/18/2023 3:22 PM CDT Hospital Encounter [facility] [address] [place] [phone] Darrius Ba MD [facility], MD Samuel Discharge Disposition: Left Against Medical Advice 11/17/2023 Travel 11/17/2023 6:50 AM CDT - 11/17/2023 2:01 PM CDT Emergency [facility] Emergency Dept [address] [place] [address] Kenzie Koroma MD Type 1 diabetes mellitus with ketoacidosis without coma (H); Leukocytosis, unspecified type; YADI (acute kidney injury) (H24) Discharge Disposition: Short Term Hospital from Last 3 Months Allergies Active Allergy Reactions Criticality Noted Date [...] associated with type 1 diabetes mellitus 03/05/2023 Social History Tobacco Use Types Packs/Day Years [...] 11/17/2023 6:47 AM CDT Plan of Treatment Not on file Procedures Procedure Name Priority Date/Time Associated Diagnosis [...] 11/18/2023 2:39 PM CDT Darrius Ba MD [facility] POCT UR LABORATORY POC [facility], [address] [place] [address] * (ABNORMAL) Ketone Beta-Hydroxybutyrate Quantitative (11/18/2023 11:18 AM CDT) Only the most recent of7 resultswithin the time period is included. Ketone (Beta-Hydroxybut yrate) Quantitative 2.70(HH) <=0.30 mmol/L 11/18/2023 12:21 PM CDT UR LAB[facility]ATORY Blood STRUCTURE OF RIGHT UPPER LIMB / Unknown Venipuncture / Unknown 11/18/2023 11:18 AM CDT 11/18/2023 11:38 AM CDT Jocelynn Grover PA-C LAB - BLOOD ORDERABL ES UR LABORATORY [facility] [address] [facility], [address] [phone] * (ABNORMAL) Basic metabolic panel (11/18/2023 11:18 [...] 11:59 AM CDT [facility] LAB[facility] Comment:eGFR calculated usin 2020 CKD-EPI equation. Calcium 9.3 8.6 - 10.0 mg/dL 11/18/2023 11:59 AM CDT [facility] Glucose 113(H) 70 - 99 mg/dL 11/18/2023 11:59 AM CDT [facility] Blood STRUCTURE OF RIGHT UPPER LIMB / Unknown Venipuncture / Unknown 11/18/2023 11:18 AM CDT 11/18/2023 11:38 AM CDT Jocelynn Grover PA-C LAB - BLOOD ORDERABL ES UR LABORATORY [facility] [address] [facility], [address] [place] [address] * (ABNORMAL) Phosphorus (11/18/2023 5:25 AM CDT) Only the most recent of5 resultswithin the time period is included. Phosphorus 1.0(L) 2.5 - 4.5 mg/dL 11/18/2023 6:41 AM CDT UR LAB[facility]ATORY Blood STRUCTURE OF RIGHT HAND / Unknown Venipuncture / Unknown 11/18/2023 5:25 AM CDT 11/18/2023 6:11 AM CDT Darrius Ba MD LAB - BLOOD ORDERA BLES UR LABORATORY [facility] [address] [facility], [address] [place] [address] * (ABNORMAL) CBC with platelets (11/18/2023 5:25 AM CDT) WBC Count 12.8(H) 4.0 - 11.0 10e3/uL [...] - BLOOD ORDERA BLES UR LABORATORY [facility] [address] [facility] [place] [address] * (ABNORMAL) Blood gas venous (11/17/2023 10:05 [...] - BLOOD ORDERABL ES UR LABORATORY [facility] Lab [address] [facility], [address] [place] [address], [facility] * (ABNORMAL) UA with Microscopic reflex to [...] 11/17/2023 6:13 PM CDT UR LABORATORY Specific [place] Urine 1.023 1.003 - 1.035 11/17/2023 6:13 [...] - URINE ORDERABL ES UR LABORATORY [facility] Lab [address] [facility] [place] [address] * EKG 12-lead, tracing only - DKA (11/17/2023 3:43 PM CDT) Only the most recent of2 resultswithin the time period is included. Systolic Blood Pressure mmHg RADIOLOGY RESULTS Diastolic Blood Pressure mmHg RADIOLOGY RESULTS Ventricular Rate 81 BPM RAD IOLOGY RESULTS Atrial Rate 81 BPM RADIOLOG Y RESULTS TN Interval 116 ms RADIOLOG Y RESULTS QRS Duration 80 ms RADIOLO GY RESULTS QT 366 ms RADIOLOGY RESULTS QTc 425 ms RADIOLOGY RESULTS P Cochran 83 degrees RADIOLOGY RESULTS R AXIS 52 degrees RADIOLOGY RESULTS T [place]chran 64 degrees RADIOLOGY RESULTS Interpretation ECG Sinus [...] - BLOOD ORDERABL ES Performing Organization Address City/[facility]/ZIP Co de Phone Number UR LABORATORY [facility] [address] [facility], [address] [place] [phone] * (ABNORMAL) Osmolality (11/17/2023 3:39 PM CDT) Osmolality Blood 310(H) 275 - 295 mmol/kg [...] serum (ethanol, methanol, isopropanol, mannitol, ethylene glycol). Zahiad RICHARDSON LAB - BLOOD ORDERABL ES Performing Organization Address [facility] Co de Phone Number UR LABORATORY [facility] [address] [facility], [address] [phone] * Magnesium (11/17/2023 3:39 PM CDT) Only the most recent of2 resultswithin the time period is included. Magnesium 2.2 1.7 - 2.3 mg/dL 11/17/2023 5:26 PM CDT UR LABORATORY Blood STRUCTURE OF RIGHT UPPER LIMB / Unknown Venipuncture / Unknown 11/17/2023 3:39 PM CDT 11/17/2023 5:08 PM CDT Zahida RICHARDSON LAB - BLOOD ORDERABL ES UR LABORATORY [facility] [address] [facility], [address] [phone] * Lactic acid whole blood (11/17/2023 3:39 PM CDT) Only the most recent of2 resultswithin the time period is included. Lactic Acid 1.1 0.7 - 2.0 mmol/L 11/17/2023 3:49 PM CDT UR LABORATORY Blood STRUCTURE OF RIGHT UPPER LIMB / Unknown Venipuncture / Unknown 11/17/2023 3:39 PM CDT 11/17/2023 3:46 PM CDT Zahida RICHARDSON LAB - BLOOD ORDERABL ES UR LABORATORY [facility] Lab [facility], [address] [phone] * (ABNORMAL) Hepatic panel (11/17/2023 3:39 PM [...] - BLOOD ORDERABL ES UR LABORATORY [facility] [address] [facility] [place] [address] * XR Chest Port 1 View (11/17/2023 7:43 AM CDT) Anatomical Region Laterality Modality Chest Digital Radiogra phy Impressions 11/17/2023 7:49 AM CDT IMPRESSION: Negative chest. EMELY CUEVA MD SYSTEM ID: [id number] Narrative 11/17/2023 7:49 AM CDT XR CHEST PORT 1 VIEW 11/17/2023 7:43 AM ?? INDICATION: DKA, vomiting, tachycardic COMPARISON: 03/05/2023 Procedure Note Emely Cueva MD - 11/17/2023 XR CHEST PORT 1 VIEW 11/17/2023 7:43 AM INDICATION: DKA, vomiting, tachycardic COMPARISON: 03/05/2023 IMPRESSION: Negative chest. EMELY CUEVA MD SYSTEM ID: [id number] Kenzie Koroma MD IMG DIAGNOSTIC I MAGING [...] - BEAKER POC T RH LABORATORY POC [facility] Lab [address] [facility] Lab (1st floor, no room number) [place] [address], [facility] * (ABNORMAL) Manual Differential (11/17/2023 6:58 AM [...] Absolute Lymphocytes 2.8 0.8 - 5.3 10e3/uL REÉN 11/19/2023 10:28 AM CDT [facility] Absolute Monocytes 3.4(H) 0.0 - 1.3 10e3/uL RENÉ 11/19/2023 10:28 AM CDT [facility] Absolute Eosinophils 0.0 0.0 - 0.7 10e3/uL RENÉ 11/19/2023 10:28 AM CDT [facility] Absolute Basophils 0.0 0.0 - 0.2 10e3/uL RENÉ 11/19/2023 10:28 AM CDT [facility] Absolute Metamyelocytes 0.3(H) <=0.0 10e3/uL R[facility]É 11/19/2023 10:28 AM CDT [facility] RBC Morphology Confirmed RBC Indices RENÉ 11/19/2023 10:28 AM CDT [facility] Platelet Assessment Automated Count Confirmed. Platelet morphology is normal. Automated Count Confirmed. Platelet morphology is normal. [facility] 11/19/2023 10:28 AM CDT [facility] Pathologist Review Comments (Blood) RENÉ 11/19/2023 10:28 AM CDT [facility] Comment:Reviewed and Differe ntial is confirmed. No additional comments. Slide reviewed by pathologist, Prem Jernigan MD on 11/18/2023. Blood BLOOD SPECIMEN / Unknown Venipuncture / Unknown 11/17/2023 6:58 AM CDT 11/17/2023 7:02 AM CDT Narrative LABORATORY - 11/19/2023 10:28 AM CDT Manual Differential results were performed, reported preliminary, and deferred by Tech. FIELDS on 11/17/23 Kenzie Koroma MD LAB - BLOOD DOREEN DALEY LABORATORY [facility] Care Lab [address] [facility] Lab (1st floor, no room number) [place] [address] * Extra Heparinized Syringe (11/17/2023 6:58 AM CDT) Hold Specimen RECEIVED. 11/17/2023 7:29 AM CDT [facility] Blood, venous BLOOD SPECIMEN / Unknown Venipuncture / Unknown 11/17/2023 6:58 AM CDT 11/17/2023 7:06 AM CDT Kenzie Koroma MD LAB - BLOOD DOREEN DALEY [facility] [address] Lab (1st floor, no room number) [place] [phone] [place] [address] * Extra Purple Top Tube (11/17/2023 6:58 AM CDT) Hold Specimen JI 11/17/2023 8:06 AM CDT [facility] Blood BLOOD SPECIMEN / Unknown Venipuncture / Unknown 11/17/2023 6:58 AM CDT 11/17/2023 7:02 AM CDT Kenzie Koroma MD LAB - BLOOD DOREEN DALEY Performing Organization Address City/[facility]/ZIP Co de Phone Number [facility] Lab [address] Lab (1st floor, no room number) [place] [phone] [place] [address] * Extra Green Top ([place] Heparin) Tube (11/17/2023 6:58 AM CDT) Hold Specimen [facility] 11/17/2023 8:06 AM CDT RH LAB[facility] Blood BLOOD SPECIMEN / Unknown Venipuncture / Unknown 11/17/2023 6:58 AM CDT 11/17/2023 7:02 AM CDT Kenzie Koroma MD LAB - BLOOD DOREEN DALEY Performing Organization Address City/[facility]/ZIP Co de Phone Number [facility] Lab [address] Lab (1st floor, no room number) [place] [phone] [place] [address] * Extra Red Top Tube (11/17/2023 6:58 AM CDT) Hold Specimen JI 11/17/2023 8:06 AM CDT [facility] Blood BLOOD SPECIMEN / Unknown Venipuncture / Unknown 11/17/2023 6:58 AM CDT 11/17/2023 7:01 AM CDT Kenzie Koroma MD LAB - BLOOD DOREEN DALEY Performing Organization Address City/[facility]/ZIP Co de Phone Number [facility] Lab [address] Lab (1st floor, no room number) [address] * (ABNORMAL) TSH with free T4 reflex (11/17/2023 6:58 AM CDT) TSH 5.54(H) 0.30 - 4.20 uIU/mL 11/17/2023 8:05 AM CDT RH [facility] Blood BLOOD SPECIMEN / Unknown Venipuncture / Unknown 11/17/2023 6:58 AM CDT 11/17/2023 7:02 AM CDT Kenzie Koroma MD LAB - BLOOD DOREEN DALEY Performing Organization Address [facility]/ZIP Co de Phone Number [facility] [address] Lab (1st floor, no room number) [address] * T4 free (11/17/2023 6:58 AM CDT) Free T4 1.00 0.90 - 1.70 ng/dL 11/17/2023 9:06 AM CDT RH LAB[facility] Blood BLOOD SPECIMEN / Unknown Venipuncture / Unknown 11/17/2023 6:58 AM CDT 11/17/2023 7:02 AM CDT Kenzie Koroma MD LAB - BLOOD DOREEN DALEY [facility] Lab [address] Lab (1st floor, no room number) [address] * (ABNORMAL) Lipase (11/17/2023 6:58 AM CDT) Lipase 12(L) 13 - 60 U/L 11/17/2023 7:26 AM CDT RH LAB[facility] Blood BLOOD SPECIMEN / Unknown Venipuncture / Unknown 11/17/2023 6:58 AM CDT 11/17/2023 7:02 AM CDT Kenzie Koroma MD LAB - BLOOD DOREEN DALEY [facility] Lab [address] Lab (1st floor, no room number) [place] [address] * (ABNORMAL) Hemoglobin A1c (11/17/2023 6:58 AM CDT) Hemoglobin A1C 12.9(H) <5.7 % 11/17/2023 10:12 AM CDT LABORATORY Comment: Normal <5.7% Prediabetes 5.7-6.4% ?? Diabetes 6.5% or higher Note: Adopted from ADA consensus guidelines. Blood BLOOD SPECIMEN / Unknown Venipuncture / Unknown 11/17/2023 6:58 AM CDT 11/17/2023 7:02 AM CDT Kenzie Koroma MD LAB - BLOOD DOREEN DALEY [facility] Lab [address] Lab (1st floor, no room number) [place] [address] from Last 3 Months Advance Directives For more information, please contact: [phone] * Full Code (Latest Code Status on File) Date Activated Date Inactivated Comments 11/17/2023 3:49 PM 11/18/2023 5:22 PM All basic an d advanced life-sustaining interventions are performed as appropriate Question Answer Comments Code status determined by: Discussion with patie nt/ legal decision maker * Full Code Date Activated Date Inactivated Comments 03/05/2023 12:49 PM 03/06/2023 2:49 PM All basic and advanced life-sustaining interventions are performed as appropriate Question Answer Comments Code status determined by: Discussion with racquel nt/ legal decision maker Care Teams Test Carrier Relationship Specialty Start Date End Date Clinic, [facility] [address] [place] [address] PCP - General 05/18/17
--- OUTSIDE RECORDS SUMMARY | 2023-11-26 13:35 | XMS_ITS | Encounter Summary ---
Author Organization [place] Address [address] [place] [address]. [place] [address] Care Team Providers Care Inclusion Internship Name Role Phone Clinic, [facility] Primary Care Provider Reason for Visit * Reason Comments Altered Mental Status Hyperglycemia Encounter Details Date Type Department Care Team (Late st Contact Info) Description 11/17/2023 6:50 AM CDT - 11/17/2023 2:01 PM CDT Emergency [facility] Emergency Dept [address] [place] [address] Kenzie Koroma MD [facility] [address] [place], [place] [id number] Type 1 diabetes mellitus with ketoacidosis without coma (H); Leukocytosis, unspecified type; YADI (acute kidney injury) (H24) Discharge Disposition: Short Term Hospital Social History Tobacco Use Types Packs/Day Years [...] on file Sexual Orientation Not on file documented as of this encounter Last Filed Vital Signs Vital Sign Reading Time Taken Comments Blood Pressure 119/82 11/17/2023 1:15 PM CDT Pulse 93 11/17/2023 1:15 PM CDT Temperature 36.1 ??C (97 ??F) 11/17/2023 6:47 AM CDT Respiratory Rate 11/17/2023 1:15 PM CDT Oxygen Saturation 98% 11/17/2023 1:15 PM CDT Inhaled Oxygen Concentration - - Weight 47.6 kg (105 lb) 11/17/2023 6:47 AM CDT Height 162.6 cm (5' 4) 11/17/2023 6:47 AM CDT Body Mass Index 18.02 11/17/2023 6:47 AM CDT documented in this encounter Medications at Time of Discharge Medication Sig Dispensed Refills Start Date End Date Insulin Glargine (BASAGLAR KWIKPEN SC) Inject 18 Units Subcutaneous daily as needed If insulin pump failure insulin lispro (HUMALOG KWIKPEN) 100 UNIT/ML injection Inject subcutaneously as needed (if insulin pump fails) insulin lispro (HUMALOG VIAL) 100 UNIT/ML vial Inject subcutaneously See Admin Instructions insulin pump fill INSULIN PUMP - OUTPATIENT Date Last Updated: 03/05/2023 [employer] BASAL RATES and times: 0.96 units/hour Carb ratio: 7 levothyroxine (SYNTHROID/LEVOTHROID) 112 MCG tablet Take 112 mcg by mouth daily documented as of this encounter ED Notes * Kenzie Wade RN - 11/17/2023 11:37 AM CDT Attempted to call report to gianluca claudio RN busy. Will call back. * Tomeka Hansen RN - 11/17/2023 7:25 AM CDT Bed: ED02 Expected date: 11/17/23 Expected time: 7:20 AM Means of arrival: Comments: Hwy PT * Nahed Rojas RN - 11/17/2023 6:53 AM CDT Pt brought in by mother for hyperglycemia which they have been trying to handle at home since yesterday PM. Per mother, patient given insulin throughout the night and sugars have continued to climb. Patient arrives extremely pale, alert but unable to stand or answer questions at all. Patient vomited x1 in triage. Endorses abdominal pain, unable to describe. Pt type 1 diabetic. HR 160s in triage, pt denies drug use. Patient unable to pivot or ambulate without assistance. * Kenzie Koroma MD - 11/17/2023 6:39 AM CDT Emergency Department Note History of Present Illness Chief Complaint Altered Mental Status and Hyperglycemia HPI Hernan Pompa is a 18 year old male with a history of type 1 diabetes presents to the emergency department with a complaint of altered mental status and high blood sugars. Patient's family reports that he has become more altered over the evening. They did try to give him insulin which did not bring down his blood sugar. He states that he has been having some vomiting. He states that he just feels very tired. He reports that he has not missed any insulin doses prior to this episode, but his blood sugars have been running high lately. He otherwise has not had any cough, pain with urination, skin rashes. Independent Historian None Review of External Notes Reviewed patient's discharge summary from 03/05/2023, patient was admitted for diabetic ketoacidosis. Past Medical History Medical History and Problem List Type I diabetes mellitus Thyroid disease Medications Insulin glargine Insulin lispro Levothyroxine Surgical History No surgical history. Physical Exam Patient Vitals for the past 24 hrs: BP Temp Pulse Resp SpO2 Height Weight 11/17/23940 -- -- 106 13 -- -- -- 11/17/23926 -- -- 100 12 -- -- -- 11/17/23921 -- -- 99 12 -- -- -- 11/17/23916 -- -- 97 10 -- -- -- 11/17/23911 -- -- 112 14 -- -- -- 11/17/23744 -- -- (!) 126 15 100 % -- -- 11/17/2340 -- -- (!) 140 18 99 % -- -- 11/17/23 0730 (!) 151/133 -- (!) 144 18 99 % -- -- 11/17/23 0647 (!) 121/99 97 ??F (36.1 ??C) (!) 161 16 98 % 1.626 m (5' 4) 47.6 kg (105 lb) Physical Exam General: Well-nourished, resting comfortably when I enter the room Eyes: Pupils equal, conjunctivae pink no scleral icterus or conjunctival injection ENT: Moist mucus membranes Respiratory: Lungs clear to auscultation bilaterally, no crackles/rubs/wheezes. Good air movement CV: Normal rate and rhythm, no murmurs GI: Abdomen soft and non-distended. No tenderness, guarding or rebound Skin: Warm, dry. No rashes or petechiae Musculoskeletal: No peripheral edema or calf tenderness Neuro: Alert and oriented to person/place/time Psychiatric: Normal affect Diagnostics Lab Results Labs Ordered and Resulted from Time of ED Arrival to Time of ED Departure HEMOGLOBIN A1C - Abnormal Result Value Hemoglobin A1C 12.9 (*) KETONE BETA-HYDROXYBUTYRATE QUANTITATIVE, RAPID - Abnormal Ketone (Beta-Hydroxybutyrate) Quantitative 4.90 (*) BASIC METABOLIC PANEL - Abnormal Sodium 138 Potassium 4.5 Chloride 98 Carbon Dioxide (CO2) 10 (*) Anion Gap 30 (*) Urea Nitrogen 26.2 (*) Creatinine 1.36 (*) GFR Estimate 76 Calcium 10.4 (*) Glucose 375 (*) MAGNESIUM - Abnormal Magnesium 2.7 (*) LIPASE - Abnormal Lipase 12 (*) CBC WITH PLATELETS AND DIFFERENTIAL - Abnormal WBC Count 28.1 (*) RBC Count 6.73 (*) Hemoglobin 20.9 (*) Hematocrit 62.0 (*) MCV 92 MCH 31.1 MCHC 33.7 RDW 12.2 Platelet Count 445 NRBCs per 100 WBC 0 Absolute NRBCs 0.0 TSH WITH FREE T4 REFLEX - Abnormal TSH 5.54 (*) MANUAL DIFFERENTIAL - Abnormal % Neutrophils 77 % Lymphocytes 10 % Monocytes 12 % Eosinophils 0 % Basophils 0 % Metamyelocytes 1 Absolute Neutrophils 21.6 (*) Absolute Lymphocytes 2.8 Absolute Monocytes 3.4 (*) Absolute Eosinophils 0.0 Absolute Basophils 0.0 Absolute Metamyelocytes 0.3 (*) RBC Morphology Confirmed RBC Indices Platelet Assessment Value: Automated Count Confirmed. Platelet morphology is normal. ISTAT GASES LACTATE VENOUS POCT - Abnormal Lactic Acid POCT 5.7 (*) Bicarbonate Venous POCT 11 (*) O2 Sat, Venous POCT 52 (*) pCO2 Venous POCT 33 (*) pH Venous POCT 7.15 (*) pO2 Venous POCT 35 GLUCOSE BY METER - Abnormal GLUCOSE BY METER POCT 358 (*) LACTIC ACID WHOLE BLOOD - Abnormal Lactic Acid 3.0 (*) GLUCOSE BY METER - Abnormal GLUCOSE BY METER POCT 214 (*) GLUCOSE BY METER - Abnormal GLUCOSE BY METER POCT 194 (*) T4 FREE - Normal Free T4 1.00 GLUCOSE MONITOR NURSING POCT ROUTINE UA WITH MICROSCOPIC REFLEX TO CULTURE LACTIC ACID WHOLE BLOOD Imaging XR Chest Port 1 View Final Result IMPRESSION: Negative chest. EMELY NEWELL MD SYSTEM ID: [id number] EKG ECG results from 11/17/23 EKG 12-lead, tracing only Value Systolic Blood Pressure Diastolic Blood Pressure Ventricular Rate 135 Atrial Rate 135 [place] Interval 112 QRS Duration 64 QT 310 QTc 465 P [place] 84 R AXIS 17 T [place] 74 Interpretation ECG Sinus tachycardia Right atrial enlargement Borderline ECG When compared with ECG of 05-MAR-2023 15:56, Vent. rate has increased BY [address] no longer elevated in Anterolateral leads T wave amplitude has decreased in Anterior leads Unconfirmed report - interpretation of this ECG is computer generated - see medical record for final interpretation Confirmed by - EMERGENCY ROOM, PHYSICIAN ([id number]), medical transcription editor Hilario Curiel ([id number]) on 11/17/2023 7:35:59 AM Independent Interpretation Chest x-ray does not show any sign of consolidation ED Course Medications Administered Medications dextrose 50 % injection 25-50 mL (has no administration in time range) insulin regular (MYXREDLIN) 1 unit/mL infusion (4 Units/hr Intravenous Rate/Dose Change 11/17/23 1028) dextrose 5% and 0.45% NaCl infusion (1,000 mLs Intravenous $New Bag 11/17/23 1033) sodium chloride 0.9% BOLUS 1,000 mL (0 mLs Intravenous Stopped 11/17/23 0751) ondansetron (ZOFRAN) injection 4 mg (4 mg Intravenous $Given 11/17/23 0751) sodium chloride 0.9% BOLUS 1,000 mL (0 mLs Intravenous Stopped 11/17/23 0857) potassium chloride 10 mEq in 100 mL sterile water infusion (10 mEq Intravenous $New Bag 11/17/23 9417) ondansetron (ZOFRAN) injection 4 mg (4 mg Intravenous $Given 11/17/23 1011) Procedures Procedures Discussion of Management Spoke with Dr. Ba,, hospitalist at [facility] [place] Accepts the patient for admission. ED Course Optional/Additional Documentation Medical Decision Making / Diagnosis [facility] Diagnoses: The Lactic acid level is elevated due to DKA, at this time there is no sign of severe sepsis or septic shock. and None MIPS None [facility] Hernan Eb Pompa is a 18 year old male with history of type 1 diabetes and hypothyroidism presents to the emergency department with a complaint of high blood sugars and altered mental status. On exam patient is awake, alert. He answers questions appropriately. He does look very tired and fatigued. Abdomen is soft and nontender. Blood sugar at home prior to arrival was in the 400s. He was giving himself insulin prior to arrival. Differential includes but is not limited to infection, DKA,HHS, thyroid emergency. Workup reveals an anion gap acidosis as well as a leukocytosis and he is also hemoconcentrated, I would suspect from the dehydration from DKA. No signs of infection. I think his lactic acid elevationis secondary to the DKA. Patient is given 2 L of fluid, potassium is 4.5 and the patient is startedon an insulin drip. He is also given 10 mEq of potassium. Heart rate has improved with fluids. Patient's lactic acid has improved after fluids. I spoke with hospitalist Dr. Ba at [facility] [place] [place] for admission. Patient will be [facility] secondary to their not being bed availability here at [facility] Disposition The patient was admitted and transferred to [facility]. Diagnosis ICD-10-CM 1. Type 1 diabetes mellitus with ketoacidosis without coma (H) E10.10 2. Leukocytosis, unspecified type D72.829 3. YADI (acute kidney injury) (H24) N17.9 Discharge Medications New Prescriptions No medications on file MD Ga Caceres Elizabeth, MD 11/17/23 2924 documented in this encounter Miscellaneous Notes * Care Plan - Darrius Ba MD - 11/17/2023 9:31 AM CDT Transfer Type: [facility] Transfer Triage Note Date of call: 11/17/23 Time of call: 9:31 AM Current Patient Location: [facility] ER Current Level of Care: ED Vitals: Temp: 97 ??F (36.1 ??C) BP: (!) 151/133 Pulse: 100 Resp: 12 SpO2: 100 % Height: 162.6 cm (5' 4) Weight: 47.6 kg (105 lb) at Diagnosis: DKA Reason for requested transfer: Further diagnostic work up, management, and consultation for specialized care Isolation Needs: None Care everywhere has been updated and reviewed: Yes Necessary images have been sent through PACS: Yes If patient is transferring for specialty care or specific procedure, the specialist required has participated in the transfer call and agreed with need for transfer and anticipated timeline: No Transfer accepted: Yes Stability of Patient: Patient is vitally stable, with no critical labs, and will likely remain stable throughout the transfer process Is the patient appropriate for [facility]? Yes Level of Care Needed: IMC Telemetry Needed: Med (Remote) Telemetry Expected Time of Arrival for Transfer: 8-24 hours Arrival Location: [facility] Recommendations for Management and Stabilization: Not needed Additional Comments: 18 yo M with pmh of type 1 DM who presented with hyperglycemia and found to be in DKA. He was receiving additional insulin with no improvement at home and brought to the ER. No localizing signs of infection per local ER. No beds available locally and plan to admit to [facility] [place]. Darrius Ba MD documented in this encounter Plan of Treatment Pending Results Name Type Priority Associated Diagnoses Date /Time [place] [facility] STAT 11/17/2023 6 :58 AM CDT Extra Blue Top Tube Lab STAT 11/16 6:58 AM CDT Scheduled Orders Name Type Priority Associated Diagnoses Orde r Schedule [place] Draw [facility] STAT Routine for 1 Occurrences starting 11/17/2023 until 11/17/2023 Extra Blue Top Tube Lab STAT Once for 1 Occurrences starting 11/17/2023 until 11/17/2023, 1 completed documented as of this encounter Procedures Procedure Name Priority Date/Time Associated Diagnosis Comments GLUCOSE BY METER STAT 11/17/2023 1:02 PM [...] VENOUS POCT STAT 11/17/2023 7:05 AM CDT MANUAL DIFFERENTIAL STAT 11/17/2023 6 :58 AM CDT EXTRA HEPARINIZED SYRINGE STAT 11/17/2023 6:58 AM CDT EXTRA PURPLE TOP TUBE STAT 11/17/2023 6:58 AM CDT EXTRA GREEN TOP (LITHIUM HEPARIN) TUBE STAT 11/17/2023 6:58 AM CDT EXTRA RED TOP TUBE STAT 11/17/2023 6: 58 AM CDT CBC WITH PLATELETS AND DIFFERENTIAL STAT 11/17/2023 6:58 AM CDT CBC WITH PLATELETS & DIFFERENTIAL STAT 11/17/2023 6:58 AM CDT TSH WITH FREE T4 REFLEX STAT 11/17/2023 6:58 AM CDT T4 FREE STAT 11/17/2023 6:58 AM CDT MAGNESIUM STAT 11/17/2023 6:58 AM CDT LIPASE STAT 11/17/2023 6:58 AM CDT KETONE BETA-HYDROXYBUTYRATE QUANTITATIVE, RAPID STAT 11/17/2023 6:58 AM CDT HEMOGLOBIN A1C STAT 11/17/2023 6:58 AM CDT BASIC METABOLIC PANEL STAT 11/17/2023 6:58 AM CDT EKG 12-LEAD, TRACING ONLY STAT 11/17/2023 6:53 AM CDT GLUCOSE BY METER STAT 11/17/2023 6:47 AM CDT documented in this encounter Results * (ABNORMAL) Glucose by meter (11/17/2023 1:02 PM CDT) GLUCOSE BY METER POCT 186(H) 70 - 99 mg/dL 11/17/2023 1:09 PM CDT LABORATORY POC Blood, Capillary BLOOD SPECIMEN / Unknown 11/17/2023 1:02 PM CDT 11/17/2023 1:09 PM CDT Kenzie Koroma MD [facility] POC T LABORATORY [facility] Acute Care Lab [address] [facility] Lab (1st floor, no room number) [place] [address], [facility] * (ABNORMAL) Glucose by meter (11/17/2023 12:08 PM CDT) GLUCOSE BY METER POCT 186(H) 70 - 99 mg/dL 11/17/2023 12:15 PM CDT LABORATORY POC Blood, Capillary BLOOD SPECIMEN / Unknown 11/17/2023 12:08 PM CDT 11/17/2023 12:15 PM CDT Kenzie Koroma MD LAB - BEAKER POC T LABORATORY [facility] Acute Care Lab [address] Lab (1st floor, no room number) [place] [address] * (ABNORMAL) Glucose by meter (11/17/2023 11:09 AM CDT) GLUCOSE BY METER POCT 169(H) 70 - 99 mg/dL 11/17/2023 11:15 AM CDT [facility] LABORATORY POC Blood, Capillary BLOOD SPECIMEN / Unknown 11/17/2023 11:09 AM CDT 11/17/2023 11:15 AM CDT Kenzie Koroma MD LAB - BEAKER POC T Performing Organization Address City/[facility]/ZIP Co de Phone Number LABORATORY [facility] Acute Care Lab [address] Lab (1st floor, no room number) [place] [address], [facility] * (ABNORMAL) Glucose by meter (11/17/2023 10:24 AM CDT) GLUCOSE BY METER POCT 194(H) 70 - 99 mg/dL 11/17/2023 10:31 AM CDT LABORATORY POC Blood, Capillary BLOOD SPECIMEN / Unknown 11/17/2023 10:24 AM CDT 11/17/2023 10:31 AM CDT Kenzie Koroma MD LAB - BEAKER POC T LABORATORY [facility] Care Lab [address] Lab (1st floor, no room number) [place] [phone], [facility] * (ABNORMAL) Glucose by meter (11/17/2023 9:32 AM CDT) GLUCOSE BY METER POCT 214(H) 70 - 99 mg/dL 11/17/2023 9:38 AM CDT [facility] LABORATORY POC Blood, Capillary BLOOD SPECIMEN / Unknown 11/17/2023 9:32 AM CDT 11/17/2023 9:38 AM CDT Kenzie Koroma MD LAB - BEAKER POC T LABORATORY [facility] Care Lab [address] Lab (1st floor, no room number) [place] [address] * (ABNORMAL) Lactic acid whole blood (11/17/2023 8:51 AM CDT) Lactic Acid 3.0(H) 0.7 - 2.0 mmol/L 11/17/2023 8:56 AM CDT [facility] LABORATORY Blood BLOOD SPECIMEN / Unknown Venipuncture / Unknown 11/17/2023 8:51 AM CDT 11/17/2023 8:54 AM CDT Kenzie Koroma MD LAB - BLOOD ORDE RABLES Performing Organization Address City/[facility]/ZIP Co de Phone Number LABORATORY [facility] Care Lab [address] Lab (1st floor, no room number) [place] [address] * XR Chest Port 1 View (11/17/2023 7:43 AM CDT) Anatomical Region Laterality Modality Chest Digital Radiogra phy Impressions 11/17/2023 7:49 AM CDT IMPRESSION: Negative chest. EMELY NEWELL MD SYSTEM ID: [id number] Narrative 11/17/2023 7:49 AM CDT XR CHEST PORT 1 VIEW 11/17/2023 7:43 AM ?? INDICATION: DKA, vomiting, tachycardic COMPARISON: 03/05/2023 Procedure Note Emely Newell MD - 11/17/2023 XR CHEST PORT 1 VIEW 11/17/2023 7:43 AM INDICATION: DKA, vomiting, tachycardic COMPARISON: 03/05/2023 IMPRESSION: Negative chest. EMELY NEWELL MD SYSTEM ID: [id number] Kenzie Koroma MD IMG DIAGNOSTIC I MAGING [...] - BEAKER POC T RH LABORATORY POC [facility] Acute Care Lab [address] [facility] Lab (1st floor, no room number) [place] [address], [facility] * T4 free (11/17/2023 6:58 AM CDT) Free T4 1.00 0.90 - 1.70 ng/dL 11/17/2023 9:06 AM CDT RH LABORATORY Blood BLOOD SPECIMEN / Unknown Venipuncture / Unknown 11/17/2023 6:58 AM CDT 11/17/2023 7:02 AM CDT Kenzie Koroma MD LAB - BLOOD DOREEN Martin Organization Address City/State/ZIP Co de Phone Number RH LABORATORY [facility] Acute Care Lab [address] Lab (1st floor, no room number) [place] [address], [facility] * (ABNORMAL) Manual Differential (11/17/2023 6:58 AM [...] Automated Count Confirmed. Platelet morphology is normal. RENÉ 11/19/2023 10:28 AM CDT RH LABORATORY Pathologist [...] MD LAB - BLOOD DOREEN DALEY LABORATORY [facility] Acute Care Lab [address] Lab (1st floor, no room number) [address] [place] [address] * (ABNORMAL) TSH with free T4 reflex (11/17/2023 6:58 AM CDT) TSH 5.54(H) 0.30 - 4.20 uIU/mL 11/17/2023 8:05 AM CDT LABORATORY Blood BLOOD SPECIMEN / Unknown Venipuncture / Unknown 11/17/2023 6:58 AM CDT 11/17/2023 7:02 AM CDT Kenzie Koroma MD LAB - BLOOD DOREEN DALEY LABORATORY [facility] Acute Care Lab [address] Lab (1st floor, no room number) [place] [phone] [place] [address] * (ABNORMAL) CBC with platelets and differential (11/17/2023 6:58 AM CDT) WBC Count 28.1(H) 4.0 - 11.0 10e3/uL 11/19/2023 10:28 AM CDT RH LABORATORY RBC Count 6.73(H) 4.40 - 5.90 10e6/uL 11/19/2023 10:28 AM CDT RH LABORATORY Hemoglobin 20.9(H) 13.3 - 17.7 g/dL 11/19/2023 10:28 AM CDT RH LABORATORY Hematocrit 62.0(H) 40.0 - 53.0 % 11/19/2023 10:28 AM CDT RH LABORATORY MCV 92 78 - 100 fL 11/19/2023 10:28 AM CDT RH LABORATORY MCH 31.1 26.5 - 33.0 pg 11/19/2023 10:28 AM CDT RH LABORATORY MCHC 33.7 31.5 - 36.5 g/dL 11/19/2023 10:28 AM CDT RH LABORATORY RDW 12.2 10.0 - 15.0 % 11/19/2023 10:28 AM CDT RH LABORATORY Platelet Count 445 150 - 450 10e3/uL 11/19/2023 10:28 AM CDT RH LABORATORY NRBCs per 100 WBC 0 <1 /100 11/19/2023 10:28 AM CDT RH LABORATORY Absolute NRBCs 0.0 10e3/uL 11/19/2023 10:28 AM CDT RH LABORATORY Blood BLOOD SPECIMEN / Unknown Venipuncture / Unknown 11/17/2023 6:58 AM CDT 11/17/2023 7:02 AM CDT Narrative RH LABORATORY - 11/19/2023 10:28 AM CDT Sent for Review by Pathologist. Review comments will be entered. Results will be updated after review as applicable. Kenzie Koroma MD LAB - BLOOD DOREEN DALEY [facility] Lab [address] Lab (1st floor, no room number) [place] [address], [facility] * (ABNORMAL) Lipase (11/17/2023 6:58 AM CDT) Lipase 12(L) 13 - 60 U/L 11/17/2023 7:26 AM CDT RH LABORATORY Blood BLOOD SPECIMEN / Unknown Venipuncture / Unknown 11/17/2023 6:58 AM CDT 11/17/2023 7:02 AM CDT Kenzie Koroma MD LAB - BLOOD DOREEN DALEY RH LABORATORY [facility] Acute Care Lab [address] Lab (1st floor, no room number) [place] [address], [facility] * (ABNORMAL) Magnesium (11/17/2023 6:58 AM CDT) Magnesium 2.7(H) 1.7 - 2.3 mg/dL 11/17/2023 7:26 AM CDT LABORATORY Blood BLOOD SPECIMEN / Unknown Venipuncture / Unknown 11/17/2023 6:58 AM CDT 11/17/2023 7:02 AM CDT Kenzie Koroma MD LAB - BLOOD DOREEN DALEY LABORATORY [facility] Acute Care Lab [address] Lab (1st floor, no room number) [place] [address] * (ABNORMAL) Basic metabolic panel (11/17/2023 6:58 AM CDT) Sodium 138 135 - 145 mmol/L 11/17/2023 7:33 AM CDT LABORATORY Potassium 4.5 3.4 - 5.3 mmol/L 11/17/2023 7:33 AM CDT LABORATORY Chloride 98 98 - 107 mmol/L 11/17/2023 7:33 AM CDT LABORATORY Carbon Dioxide (CO2) 10(LL) 22 - 29 mmol/L 11/17/2023 7:33 AM CDT LABORATORY Anion Gap 30(H) 7 - 15 mmol/L 11/17/2023 7:33 AM CDT LABORATORY Urea Nitrogen 26.2(H) 6.0 - 20.0 mg/dL 11/17/2023 7:33 AM CDT LABORATORY Creatinine 1.36(H) 0.67 - 1.17 mg/dL 11/17/2023 7:33 AM CDT LABORATORY GFR Estimate 76 >60 mL/min/1.7 3m2 11/17/2023 7:33 AM CDT LABORATORY Comment:eGFR calculated usin 2020 CKD-EPI equation. Calcium 10.4(H) 8.6 - 10.0 mg/dL 11/17/2023 7:33 AM CDT LABORATORY Glucose 375(H) 70 - 99 mg/dL 11/17/2023 7:33 AM CDT LABORATORY Blood BLOOD SPECIMEN / Unknown Venipuncture / Unknown 11/17/2023 6:58 AM CDT 11/17/2023 7:02 AM CDT Kenzie Koroma MD LAB - BLOOD HOLLANDRuel DALEY [facility] Acute Care Lab [address] Lab (1st floor, no room number) [place] [phone] * (ABNORMAL) Ketone Beta-Hydroxybutyrate Quantitative (11/17/2023 6:58 AM CDT) Ketone (Beta-Hydroxybut yrate) Quantitative 4.90(HH) <=0.30 mmol/L 11/17/2023 7:44 AM CDT LABORATORY Blood BLOOD SPECIMEN / Unknown Venipuncture / Unknown 11/17/2023 6:58 AM CDT 11/17/2023 7:02 AM CDT Kenzie Koroma MD LAB - BLOOD DOREEN DALEY Performing Organization Address [facility]/ZIP Co de Phone Number [facility] Lab [address] Lab (1st floor, no room number) [place] [phone] [place] [address] * (ABNORMAL) Hemoglobin A1c (11/17/2023 6:58 AM CDT) Hemoglobin A1C 12.9(H) <5.7 % 11/17/2023 10:12 AM CDT RH LABORATORY Comment: Normal <5.7% Prediabetes 5.7-6.4% ?? Diabetes 6.5% or higher Note: Adopted from ADA consensus guidelines. Blood BLOOD SPECIMEN / Unknown Venipuncture / Unknown 11/17/2023 6:58 AM CDT 11/17/2023 7:02 AM CDT Kenzie Koroma MD LAB - BLOOD DOREEN DALEY [facility] Care Lab [address] Lab (1st floor, no room number) [place] [phone] [place] [address] * Extra Heparinized Syringe (11/17/2023 6:58 AM CDT) Hold Specimen RECEIVED. 11/17/2023 7:29 AM CDT RH LABORATORY Blood, venous BLOOD SPECIMEN / Unknown Venipuncture / Unknown 11/17/2023 6:58 AM CDT 11/17/2023 7:06 AM CDT Kenzie Koroma MD LAB - BLOOD DOREEN DALEY [facility] Lab [address] Lab (1st floor, no room number) [place] [phone] [place] [address] * Extra Purple Top Tube (11/17/2023 6:58 AM CDT) Hold Specimen JI 11/17/2023 8:06 AM CDT RH LABORATORY Blood BLOOD SPECIMEN / Unknown Venipuncture / Unknown 11/17/2023 6:58 AM CDT 11/17/2023 7:02 AM CDT Kenzie Koroma MD LAB - BLOOD DOREEN DALEY [facility] Acute Care Lab [address] Lab (1st floor, no room number) [place] [address], [place] * Extra Green Top ([place] Heparin) Tube (11/17/2023 6:58 AM CDT) Hold Specimen JIC 11/17/2023 8:06 AM CDT RH LABORATORY Blood BLOOD SPECIMEN / Unknown Venipuncture / Unknown 11/17/2023 6:58 AM CDT 11/17/2023 7:02 AM CDT Kenzie Koroma MD LAB - BLOOD DOREEN DALEY [facility] Acute Care Lab [address] Lab (1st floor, no room number) [address] * Extra Red Top Tube (11/17/2023 6:58 AM CDT) Hold Specimen JIC 11/17/2023 8:06 AM CDT LABORATORY Blood BLOOD SPECIMEN / Unknown Venipuncture / Unknown 11/17/2023 6:58 AM CDT 11/17/2023 7:01 AM CDT Kenzie Koroma MD LAB - BLOOD DOREEN DALEY [facility] [address] [facility] (1st floor, no room number) [address] * EKG 12-lead, tracing only (11/17/2023 6:53 AM CDT) Systolic Blood Pressure mmHg RADIOLOGY RESULTS Diastolic Blood Pressure mmHg RADIOLOGY RESULTS Ventricular Rate 135 BPM RAD IOLOGY RESULTS Atrial Rate 135 BPM RADIOLOG Y RESULTS [place] Interval 112 ms RADIOLOG Y RESULTS QRS Duration 64 ms RADIOLO GY RESULTS QT 310 ms RADIOLOGY RESULTS QTc 465 ms RADIOLOGY RESULTS P [place] 84 degrees RADIOLOGY RESULTS R AXIS 17 degrees RADIOLOGY RESULTS T [place] 74 degrees RADIOLOGY RESULTS Interpretation ECG Sinus tachycardia Right atrial enlargement Borderline ECG When compared with ECG of 05-MAR-2023 15:56, Vent. rate has increased BY ??[address] no longer elevated in Anterolateral leads T wave amplitude has decreased in Anterior leads Unconfirmed report - interpretation of this ECG is computer generated - see medical record for final interpretation Confirmed by - EMERGENCY ROOM, PHYSICIAN ([id number]), medical transcription editor Hilario Curiel ([id number]) on 11/17/2023 7:35:59 AM RADIOLOGY RESULTS 11/17/2023 6:53 AM CDT 11/17/2023 7:35 AM CDT Kenzie Koroma MD ECG ORDERABLES RADIOLOGY RESULTS * (ABNORMAL) Glucose by meter (11/17/2023 6:47 AM CDT) GLUCOSE BY METER POCT 358(H) 70 - 99 mg/dL 11/17/2023 7:49 AM CDT [facility]ORAT[facility] POC Blood, Capillary BLOOD SPECIMEN / Unknown 11/17/2023 6:47 AM CDT 11/17/2023 7:49 AM CDT Kenzie Koroma MD LAB - BEAKER POC T [facility] LABORAT[facility] POC [facility] [address] [facility] Lab (1st floor, no room number) [place] [id number] documented in this encounter Visit Diagnoses Diagnosis Type 1 diabetes mellitus with ketoacidosis without coma (H) Leukocytosis, unspecified type YADI (acute kidney injury) (H24) Acute kidney failure, unspecified documented in this encounter Administered Medications Inactive Administered Medications - up to 3 most recent administrations Medication Order MAR Action Action Date Dose Rate Site dextrose 5% and 0.45% NaCl infusion at 250 mL/hr, Intravenous, CONTINUOUS PRN, Starting on Wed11/17/23 at 0806, Until Wed11/17/23 at 1436 $New Bag 11/17/2023 10:33 AM CDT 1,000 mLs 250 mL/hr dextrose 50 % injection 25-50 mL 25-50 mL, Intravenous, EVERY 15 MIN PRN, low blood sugar, Administer over 1-5 Minutes, Starting on Wed11/17/23 at 0701, Use if have IV access, blood glucose level is LESS than 70 mg/dL and meets dose criteria below: Dose if conscious and alert (or disorientated) and NPO = 25 mL Dose if unconscious / not alert = 50 mL Give first dose for initial blood glucose level LESS than 70 mg/dL. If blood glucose level at 15 minute recheck is LESS than or EQUAL to 100 mg/dL continue to administer carbohydrate treatment every 15 minutes, as needed, based on blood glucose level and assessment parameters until blood glucose level is above 100 mg/dL. insulin regular (MYXREDLIN) 1 unit/mL infusion Intravenous, CONTINUOUS, Starting on Wed11/17/23 at 0805, DO NOT start insulin infusion until Serum Potassium level is greater than 3.3 mmol/L. Rate of blood glucose level fall should be 50-70 mg/dL/hr. Initiate drip with Algorithm 1 Move to HIGHER number algorithm If blood glucose level is greater than 200 mg/dL AND blood glucose level has not fallen by at least 50 mg/dL within the previous hour. Notify provider if already at Algorithm 4. Move to LOWER number algorithm If blood glucose less than 100 mg/dL x 2 consecutive readings. Notify provider if already at Algorithm 1. *When DKA has resolved and patient is tolerating PO intake, Contact provider to transition to subcutaneous insulin Bolus insulin has not been shown to be beneficial over early initiation of insulin continuous infusion. Rate/Dose Change 11/17/2023 1:08 PM CDT 8 Units/hr 8 mL/hr Rate/Dose Change 11/17/2023 10:28 AM CDT 4 Units/hr 4 mL/h r $New Bag 11/17/2023 9:37 AM CDT 2 Units/hr 2 mL/hr ondansetron (ZOFRAN) 2 MG/ML injection Starting on Wed11/17/23 at 1017, For 1 dose, Sowmya Wade: cabinet override ondansetron (ZOFRAN) injection 4 mg 4 mg, Intravenous, ONCE, Administer over 2-5 Minutes, On Wed11/17/23 at 0705, For 1 dose $Given 11/17/2023 7:51 AM CDT 4 mg ondansetron (ZOFRAN) injection 4 mg 4 mg, Intravenous, ONCE, Administer over 2-5 Minutes, On Wed11/17/23 at 1020, For 1 dose $Given 11/17/2023 10:19 AM CDT 4 mg potassium chloride 10 mEq in 100 mL sterile water infusion 10 mEq, Intravenous, Administer over 60 Minutes, at 100 mL/hr, ONCE, On Wed11/17/23 at 0805, For 1 dose, For initial K+ less than 5, dose = 10 mEq/hr x 1 dose (10 mEq IV total dose). Infuse via PERIPHERAL LINE. Recheck potassium level every 2 hours. $New Bag 11/17/2023 9:37 AM CDT 10 mEq 100 mL/hr sodium chloride 0.9% BOLUS 1,000 mL Intravenous, 1,000 mL, ONCE, at 1,000 mL/hr, Administer over 1 Hours, On Wed11/17/23 at 0705, For 1 dose $New Bag 11/17/2023 7:10 AM CDT 1,000 mLs 1000 mL/hr sodium chloride 0.9% BOLUS 1,000 mL Intravenous, 1,000 mL, ONCE, at 1,000 mL/hr, Administer over 1 Hours, On Wed11/17/23 at 0720, For 1 dose $New Bag 11/17/2023 7:51 AM CDT 1,000 mLs 1000 mL/hr documented in this encounter Active and Recently Administered Medications Times are shown in CDT. Scheduled Medication Order 11/15/2023 11/16/2023 11/17/2023 ondansetron (ZOFRAN) injection 4 mg (COMPLETED) 4 mg, Intravenous, ONCE, Administer over 2-5 Minutes, On Wed11/17/23 at 0705, For 1 dose 0751 ($Given - Provi kelechi: Kenzie Wade RN) ondansetron (ZOFRAN) injection 4 mg (COMPLETED) 4 mg, Intravenous, ONCE, Administer over 2-5 Minutes, On Wed11/17/23 at 1020, For 1 dose 1019 ($Given - Provi kelechi: Kenzie Wade RN) potassium chloride 10 mEq in 100 mL sterile water infusion (COMPLETED) 10 mEq, Intravenous, Administer over 60 Minutes, at 100 mL/hr, ONCE, On Wed11/17/23 at 0805, For 1 dose, For initial K+ less than 5, dose = 10 mEq/hr x 1 dose (10 mEq IV total dose). Infuse via PERIPHERAL LINE. Recheck potassium level every 2 hours. 0937 ($New Bag - Pro vider: Tomeka Hansen RN)1151 (Stopped - Provider: Elsie Johnson RN) sodium chloride 0.9% BOLUS 1,000 mL (COMPLETED)(Linked Group 1) Intravenous, 1,000 mL, ONCE, at 1,000 mL/hr, Administer over 1 Hours, On Wed11/17/23 at 0705, For 1 dose 0710 ($New Bag - Pro vider: Ishmael Rubio RN)0751 (Stopped - Provider: Kenzie Wade RN) sodium chloride 0.9% BOLUS 1,000 mL (COMPLETED) Intravenous, 1,000 mL, ONCE, at 1,000 mL/hr, Administer over 1 Hours, On Wed11/17/23 at 0720, For 1 dose 0751 ($New Bag - Pro vider: Kenzie Wade RN)0857 (Stopped - Provider: Kenzie Wade RN) Continuous Medication Order 11/15/2023 11/16/2023 11/17/2023 insulin regular (MYXREDLIN) 1 unit/mL infusion Intravenous, CONTINUOUS, Starting on Wed11/17/23 at 0805, DO NOT start insulin infusion until Serum Potassium level is greater than 3.3 mmol/L. Rate of blood glucose level fall should be 50-70 mg/dL/hr. Initiate drip with Algorithm 1 Move to HIGHER number algorithm If blood glucose level is greater than 200 mg/dL AND blood glucose level has not fallen by at least 50 mg/dL within the previous hour. Notify provider if already at Algorithm 4. Move to LOWER number algorithm If blood glucose less than 100 mg/dL x 2 consecutive readings. Notify provider if already at Algorithm 1. *When DKA has resolved and patient is tolerating PO intake, Contact provider to transition to subcutaneous insulin Bolus insulin has not been shown to be beneficial over early initiation of insulin continuous infusion. 0929 (Canceled Entry - Provider: Orders Generic Provider - Comment: Automatically canceled at discontinue of medication order)0937 ($New Bag - Provider: Tomeka Hansen RN - Comment: BG 214 in algorithm 1)1028 (Rate/Dose Change - Provider: Kenzie Wade RN - Comment: BG 194 move to alg 2)1308 (Rate/Dose Change - Provider: Kenzie Wade RN - Comment: Alg 4) PRN Medication Order 11/15/2023 11/16/2023 11/17/2023 dextrose 5% and 0.45% NaCl infusion at 250 mL/hr, Intravenous, CONTINUOUS PRN, Starting on Wed11/17/23 at 0806, Until Wed11/17/23 at 1436 1033 ($New Bag - Pro vider: Kenzie Wade RN) dextrose 50 % injection 25-50 mL 25-50 mL, Intravenous, EVERY 15 MIN PRN, low blood sugar, Administer over 1-5 Minutes, Starting on Wed11/17/23 at 0701, Use if have IV access, blood glucose level is LESS than 70 mg/dL and meets dose criteria below: Dose if conscious and alert (or disorientated) and NPO = 25 mL Dose if unconscious / not alert = 50 mL Give first dose for initial blood glucose level LESS than 70 mg/dL. If blood glucose level at 15 minute recheck is LESS than or EQUAL to 100 mg/dL continue to administer carbohydrate treatment every 15 minutes, as needed, based on blood glucose level and assessment parameters until blood glucose level is above 100 mg/dL. Linked Groups Order Group 1: sodium chloride 0.9% BOLUS 1,000 mL (COMPLETED)Jump to med Intravenous, 1,000 mL, ONCE, at 1,000 mL/hr, Administer over 1 Hours, On Wed11/17/23 at 0705, For 1 dose Followed by 0.45% sodium chloride infusion (CANCELED) at 250 mL/hr, Intravenous, CONTINUOUS, Administer after the bolus. Start dextrose 5% and 0.45% NaCl, when blood glucose level reaches 200 mg/dL., Starting on Wed11/17/23 at 0705, Until Wed11/17/23 at 0721 documented in this encounter Care Teams Inclusion Internship Relationship Specialty Start Date End Date [facility], [place] [id number] [place] [address] PCP - General 05/18/17 documented as of this encounter
--- OUTSIDE RECORDS SUMMARY | 2023-11-26 13:35 | XMS_ITS | Encounter Summary ---
Author Organization [place] Address [address] [place] [address]. [place] [address] Care Team Providers Care Interpersonal Communications Professor Name Role Phone Clinic, [facility]ustin Primary Care Provider Reason for Visit * Auth/Cert (Routine) Specialty Diagnoses / Procedures Referred By Contac t Referred To Contact Med Surg Diagnoses DKA DKA (diabetic ketoacidosis) (H) Ur 5 Med [address] [place] [id number] Referral ID Status Reason Start Date Expiration Date Visits Re quested Visits Authorized [id number] 1 1 Encounter Details Date Type Department Care Team (Late st Contact Info) Description 11/17/2023 2:26 PM CDT - 11/18/2023 3:22 PM CDT Hospital Encounter [facility] Med Surg [address] [place] [phone] Darrius Ba MD [address] [place] [phone] [phone] Samuel Echeverria MD [address] [place] [address] [address] [place] [address] Discharge Disposition: Left Against Medical Advice Social History Tobacco Use Types Packs/Day Years [...] CDT Inhaled Oxygen Concentration - - Weight - - Height - - Body Mass Index - - documented in this encounter Discharge Summaries * Rashaad Guerrero MD - 11/18/2023 3:17 PM CDT [facility] Hospitalist Discharge Summary Date of Admission: 11/17/2023 Date of Discharge: No discharge date for patient encounter. Discharging Provider: Sofia Fraga MD Discharge Service: Hospitalist Service, [facility] TEAM 18 Discharge Diagnoses DKA DM Type 1 Clinically Significant Risk Factors Discharge Disposition Discharged to home Condition at discharge: Devon still is not recovered from [facility] Hospital Course mark Pompa is a 18 year old male admitted on 11/17/2023. He had a history of DMI and thyroid disease who presented with altered mental status and vomiting found to have DKA in the ED at [facility], transferred to [facility] for admission. He was put on DKA protocol drip,and felt much better,a nd was also able to tolerate diet However, he decided to discharge home against medical advice despite considerable time spent on educating and convincing the patient to sat for completion of treatment Consultations This Hospital Stay ENDOCRINE DIABETES ADULT IP CONSULT DIABETES EDUCATION IP CONSULT Code Status Full Code Time Spent on this Encounter ISofia MD, personally saw the patient today and spent less than or equal to 30 minutes discharging this patient. Sofia Fraga MD [facility] MED SURG [id number] [id number] [facility] Discharge Orders No discharge procedures on file. Discharge Medications Current Discharge Medication List CONTINUE these medications which have NOT CHANGED Details Insulin Glargine (BASAGLAR KWIKPEN SC) Inject 18 Units Subcutaneous daily as needed If insulin pumpfailure insulin lispro (HUMALOG KWIKPEN) 100 UNIT/ML injection Inject subcutaneously as needed (if insulin pump fails) insulin lispro (HUMALOG VIAL) 100 UNIT/ML vial Inject subcutaneously See Admin Instructions insulinpump fill INSULIN PUMP - OUTPATIENT Date Last Updated: 03/05/2023 Medtronic BASAL RATES and times: 0.96 units/hour Carb ratio: 7 levothyroxine (SYNTHROID/LEVOTHROID) 112 MCG tablet Take 112 mcg by mouth daily Allergies Allergies Allergen Reactions Amoxicillin Angioedema Swelling in throat as baby after amoxicillin Penicillins Other (See Comments) Per mom, patient has not had penicillin. They avoid it d/t swelling in throat as baby after amoxicillin. documented in this encounter Medications at Time [...] mouth daily documented as of this encounter Progress Notes * Rashaad Guerrero MD - 11/18/2023 3:09 PM CDT Patient insisting to discharge from the hospital Discussed both with mother ( at bedside) and patient that this was not advisable and he was still acidotic and risk of deterioration if he were to leave Patient feels that he is back at baseline. Mum at bedside said that she could watch ovr him closely Patient is decisional Discussed with endocrinology team as well, who advised that patient be given 18 units of lantus andnot to put the pump back on for 24 hrs after lantus. Although this was ordered, patient and his mother left the room within seconds of signing the AMA form. I tried to contact the patient on his cell phone incase he was in the hospital campus to comeback to the floor for lantus- but did not grape picker the phone Mother's cell phone not listed and Dad did not grape picker his phone Dr David Black MD, [facility] Hospitalist ( Internal medicine) Pager: [phone] * Rashaad Guerrero MD - 11/18/2023 10:30 AM CDT [facility] Medicine Progress Note - Hospitalist Service, LOUIE TEAM 18 Date of Admission: 11/17/2023 Assessment & Plan Hernan Pompa is a 18 year old male admitted on 11/17/2023. He had a history of DMI and thyroid disease who presented with altered mental status and vomiting found to have DKA in the ED at [facility], transferred to [facility] for admission. DMI DKA Acute metabolic encephalopathy HAGMA Leukocytosis Presented with altered mentation ( unable to answer any questions, No Verbal response, GCS 11/15) and vomiting with elevated blood glucose levels. Labs in the ED notable for bicarb 10, Lactic acid 5.7, ketones 4.9, anion gap 30, pH 7.15 on VBG, WBC 28K. No symptoms to suggest inciting infection. EKG in the ED with sinus tachycardia. HbA1c 12.9% suggesting non-compliance as etiology. Patient did endorse starting after symptoms without any exam finding to suggest pharyngitis. HEAD OF PRECISION TARGETING on insulin pump with additional carb coverage. Leukocytosis likely reactive, no signs of infection. -DKA protocol -Insulin gtt, fluids and K replacement per protocol -BMP, Ketones, phos, every 4 hours ( ketones are slowly improving , but still high at 1.4, and still acidotic with bicarb of 19) - Encephalopathy is largely resolved and the patient is orientated X 3 -Transition to subcutaneous insulin once tolerating PO and DKA resolved -Endocrinology/diabetes consult -Hold HEAD OF PRECISION TARGETING insulin pump at this time Elevated creatinine Anuric Cr in the ED 1.35, baseline 0.6-0.7. Likely secondary to hypovolemia in the setting of dehydration,vomiting and CBC suggestive of hemoconcentration. -IVF as above -Check bladder scan -UA as above -Repeat BMP with creatinine within normmal limits Thyroid disease TSH 5.54, free T4 wnl. Likely euthyroid sick syndrome. -Continue HEAD OF PRECISION TARGETING levothyroxine -Repeat TFT with PCP in 4 weeks Diet: NPO for Medical/Clinical Reasons Except for: Meds, Ice Chips DVT Prophylaxis: Pneumatic Compression Devices Kohler Catheter: Not present Lines: None Cardiac Monitoring: ACTIVE order. Indication: DKA Code Status: Full Code Clinically Significant Risk Factors Present on Admission # Hypokalemia: Lowest K = 3.2 mmol/L in last 2 days, will replace as needed # Hypocalcemia: Lowest Ca = 8.4 mg/dL in last 2 days, will monitor and replace as appropriate # Hypercalcemia: Highest Ca = 10.4 mg/dL in last 2 days, will monitor as appropriate # Anion Gap Metabolic Acidosis: Highest Anion Gap = 30 mmol/L in last 2 days, will monitor and treat as appropriate Disposition Plan Medically Ready for Discharge: Anticipated in 2-4 Days Sofia Fraga MD Hospitalist Service, [facility] TEAM 18 M [facility] Securely message with Wedia (more info) Text page via [facility] Paging/Directory See signed in provider for up to date coverage information Interval History Charts reviewed and patient was examined. He was already up Says he feels a lot better Denies abdominal pain Does not know what brought on his DKA Physical Exam Vital Signs: Temp: 99.2 ??F (37.3 ??C) Temp src: Oral BP: 123/89 Pulse: 79 Resp: 16 SpO2: 100 % O2 Device: None (Room air) Weight: 0 lbs 0 oz General Appearance: Awake, alert and not in distress Respiratory: Clear breath sounds bilaterally Cardiovascular: Normal heart sounds. No murmurs GI: Soft, non tender. Normal bowel sounds Skin: No bruising or bleeding Other:Awake, alert and orientated X 3 Medical Decision Making 38 MINUTES SPENT BY ME on the date of service doing chart review, history, exam, documentation & further activities per the note. MANAGEMENT DISCUSSED with the following over the past 24 hours: Patient, bedside RN, care management and Endocrinology team Data I have personally reviewed the following data over the past 24 hrs: 12.8 (H) \ 13.7 / 257 143 114 (H) 16.2 / 78 3.4 19 (L) 0.72 \ ALT: 11 AST: 17 AP: 94 TBILI: 0.4 ALB: 3.7 TOT PROTEIN: 6.0 (L) LIPASE: N/A Procal: N/A CRP: N/A Lactic Acid: 1.1 * Jocelynn Grover PA-C - 11/17/2023 6:12 PM CDT Hernan Pompa is a 18 year old [...] any cough, pain with urination, skin rashes. Inpatient diabetes Service consulted on Type 1 patient that is in DKA Appropriate DKA insulin drip ordered, fluids ordered, labs ordered. Hospitalist says his pump has been removed and is not running. Discussed with Hospitalist , will complete consult in am Jocelynn Grover PA-C Inpatient Diabetes Service Vocera Contacting the Inpatient Diabetes Team From 7AM-5PM: page inpatient diabetes provider that is following the patient, or utilize the job code paging system. From 5PM-7AM: page the job code for endocrine fellow sap enterprise portal consultant. Please use the following job code to reach the Inpatient Diabetes team. [phone] to reach the endocrine-diabetes provider sap enterprise portal consultant. documented in this encounter H&P Notes * Zahida Adames PA - 11/17/2023 3:15 PM CDT [facility] History and Physical - Hospitalist Service, GOLD TEAM Date of Admission: 11/17/2023 Assessment & Plan Hernan Pompa is a 18 year old male admitted on 11/17/2023. He had a history of DMI and thyroid disease who presented with altered mental status and vomiting found to have DKA in the ED at [facility], transferred to [facility] for admission. DMI DKA HAGMA Leukocytosis Presented with altered mentation and vomiting with elevated blood glucose levels. Labs in the ED notable for bicarb 10, Lactic acid 5.7, ketones 4.9, anion gap 30, pH 7.15 on VBG, WBC 28K. No symptoms to suggest inciting infection. EKG in the ED with sinus tachycardia. HbA1c 12.9% suggesting non-com pliance as etiology. Patient did endorse starting after symptoms without any exam finding to suggest pharyngitis. HEAD OF PRECISION TARGETING on insulin pump with additional carb coverage. Leukocytosis likely reactive, no signs of infection. -DKA protocol -Insulin gtt, fluids and K replacement per protocol -BMP, Ketones, phos, every 4 hours -Transition to subcutaneous insulin once tolerating PO and DKA resolved -Obtain UA -Endocrinology/diabetes consult -Hold HEAD OF PRECISION TARGETING insulin pump at this time -Repeat EKG YADI Anuric Cr in the ED 1.35, baseline 0.6-0.7. Likely secondary to hypovolemia in the setting of dehydration,vomiting and CBC suggestive of hemoconcentration. -IVF as above -Check bladder scan -UA as above -Repeat BMP in AM Thyroid disease TSH 5.54, free T4 wnl. Likely euthyroid sick syndrome. -Continue HEAD OF PRECISION TARGETING levothyroxine -Repeat TFT with PCP in 4 weeks Diet: NPO for Medical/Clinical Reasons Except for: Meds, Ice ChipsNPO until DKA resolved DVT Prophylaxis: Pneumatic Compression Devices Kohler Catheter: Not present Lines: None Cardiac Monitoring: ACTIVE order. Indication: DKA Code Status: Full CodeFull code Clinically Significant Risk Factors Present on Admission # Hypercalcemia: Highest Ca = 10.4 mg/dL in last 2 days, will monitor as appropriate # Anion Gap Metabolic Acidosis: Highest Anion Gap = 30 mmol/L in last 2 days, will monitor and treat as appropriate Disposition Plan Medically Ready for Discharge: Anticipated in 2-4 Days The patient's care was discussed with the Attending Physician, Dr. Echeverria, Bedside Nurse, Patient, Patient's Family, and diabetes Team. DEBRA Hough Hospitalist Service, [facility] Securely message with Wedia (more info) Text page via [facility] Paging/Directory See signed in provider for up to date coverage information Chief Complaint High blood glucose History is obtained from the patient and review of medical records. History of Present Illness Hernan Pompa is a 18 year old male who has a history of mellitus type I, hypothyroidism presented to the ED with elevated, altered mental status and vomiting. Found to have diabetic ketoacidosis. Patient reports that yesterday he was feeling well and noted high blood glucose levels she was unable to control with insulin. Notes associated vomiting and poor p.o. intake. He reports he was trying to drink zero sugar Gatorade every 15 minutes yesterday to maintain hydration. He notes sore throat since this AM. Denies any fevers, chills, abdominal pain, dysuria, skin rashes, or sick contacts. Patient notes he has been anuric today despite getting IVF in the ED. Past Medical History Past Medical History: Diagnosis Date Diabetes (H) Thyroid disease Past Surgical History No past surgical history on file. Prior to Admission Medications Prior to Admission Medications Prescriptions Last Dose Informant Patient Reported? Taking? INSULIN PUMP - OUTPATIENT Yes No Sig: Date Last Updated: 03/05/2023 Medtronic BASAL RATES and times: 0.96 units/hour Carb ratio: 7 Insulin Glargine (BASAGLAR KWIKPEN SC) Yes No Sig: Inject 18 Units Subcutaneous daily as needed If insulin pump failure insulin lispro (HUMALOG KWIKPEN) 100 UNIT/ML injection Yes No Sig: Inject Subcutaneous as needed (insulin pump fill) levothyroxine (SYNTHROID/LEVOTHROID) 112 MCG tablet Yes No Sig: Take 112 mcg by mouth daily Facility-Administered Medications: None Allergies Allergies Allergen Reactions Amoxicillin Rash Penicillins Rash Physical Exam Blood pressure 102/67, pulse 79, temperature 97.9 ??F (36.6 ??C), SpO2 100%. GENERAL: Alert and oriented x 3. NAD. Appears fatigued. HEENT: Anicteric sclera. PERRL. Mucous membranes dry and without lesions. No erythema or edema of oral pharynx. CV: RRR. S1, S2. No murmurs appreciated. RESPIRATORY: Effort normal on RA. Lungs CTAB with no wheezing, rales, rhonchi. GI: Abdomen soft and non distended, bowel sounds present. No tenderness, rebound, guarding. MUSCULOSKELETAL: No joint swelling or tenderness. Moves all extremities. NEUROLOGICAL: No focal deficits. EXTREMITIES: No peripheral edema. Intact bilateral pedal pulses. SKIN: No jaundice. No rashes of exposed skin. Medical Decision Making 70 MINUTES SPENT BY ME on the date of service doing chart review, history, exam, documentation & further activities per the note. Data I have personally reviewed the following data over the past 24 hrs: 15.1 (H) \ 14.9 / 298 138 98 26.2 (H) / 186 (H) 4.5 10 (LL) 1.36 (H) \ ALT: N/A AST: N/A AP: N/A TBILI: N/A ALB: N/A TOT PROTEIN: N/A LIPASE: 12 (L) TSH: 5.54 (H) T4: 1.00 A1C: 12.9 (H) Procal: N/A CRP: N/A Lactic Acid: 1.1 Imaging results reviewed over the past 24 hrs: Recent Results (from the past 24 hour(s)) XR Chest Port 1 View Narrative XR CHEST PORT 1 VIEW 11/17/2023 7:43 AM INDICATION: DKA, vomiting, tachycardic COMPARISON: 03/05/2023 Impression IMPRESSION: Negative chest. EMELY NEWELL MD SYSTEM ID: [id number] Associated attestation - Samuel Echeverria MD - 11/17/2023 10:44 PM CDT Physician Attestation I saw and evaluated Hernan Pompa as part of a shared WALLPAPER CONSULTANT/PA visit. I personally reviewed the vital signs, medications, labs, and imaging. I personally provided a substantive portion of care for this patient and I approve the care plan aswritten by the KHALIF. I was involved with Medical Decision Making including: Please see A&P for additional details of medical decision making. Admitted with DKA. History of type I DM with altered mental status, vomiting. YADI Thyroid disorder Currently doing better. Resting comfortably. Hemodynamics: Stable Continue IV fluid, insulin per DKA protocol. Hold HEAD OF PRECISION TARGETING insulin pump. Endocrinology consultation Monitor blood glucose, follow-up BMP. HEAD OF PRECISION TARGETING levothyroxine Samuel Echeverria MD Date of Service (when I saw the patient): 11/17/23 documented in this encounter Consult Notes * Shahzad Francis CNS - 11/18/2023 3:22 PM CDTAssociated Order(s): DIABETES EDUCATION IP CONSULT Diabetes FOOD SERVICE AIDE/Educator Consult Cut Off Saw Grader consulted for Hernan Pompa, 18 year old male, with T1DM admitted for DKA. Consult for non adherence and lack of understanding. Hernan discharged abruptly this afternoon after signing AMA form. Did not see for education. Shahzad Francis APRN, [facility] Cut Off Saw Grader Pager: [phone] Office: [phone] Securely message with Wedia * Jocelynn Grover PA-C - 11/18/2023 9:00 AM CDTAssociated Order(s): ENDOCRINE DIABETES ADULT IP CONSULT Images from the original note were not included. Inpatient Diabetes Management Service : New Consult Note Patient: Hernan Pompa Date of : 2005 Date of Consult : 11/18/2023 Date of Admission: 11/17/2023 Reason for Consult: DMI on insulin pump, admitted for DKA Consult Requestor: Rashaad Guerrero MD History of Present Illness: Hernan Pompa is a 18 year old male who has a history of mellitus type I, hypothyroidism presented to the ED with elevated, altered mental status and vomiting. Found to have diabetic ketoacidosis. History obtained via the patient, chart review and discussion with primary team. Additional Historian: mom and briefly dad Diabetes Focus: Hernan is not known to the Inpatient Diabetes Service from past admission(s). He see his provider in [facility]. Mom says he saw her about 1 month ago. Pt has to sign authorization to get access to these records. Hernan reports that the day before yesterday he was feeling well and noted high blood glucose levels he was unable to control with insulin. Dad said over phone that he gave lantus 20 units on 11/16/2023 at 8 pm and BG 300-400. He also got short acting insulin but BG did not improve, Hernan developed vomiting and poor p.o. intake. He reports he was trying to drink zero sugar Gatorade every 15 minutes the day before admission to maintain hydration.When he still could not get BG down he came to the ER. He denies any URI/cold sx/cough /abdominal pain/dysuria but has no appetite. He is a picky eaterand unclear when he last eat per his mom. He tests his BG at least daily but not as many times as I should. He wears a medtronic pump but does not know model or settings and dad took it home. . He says before Wednesday he was fine. He says my BG were fine. He lives with his dad so his mother was not sure what his BG were. Spoke briefly with father on phone today who brought him to the ER but tried to call back and ask about the pump/details but no answer. Hernan was last admitted 02/23/2023for DKA. His mom said he had DKA one time before but did not go to the hospital,they were able to give him enough insulin to make him feel better. Today altered mental status is resolved. Still with some nausea, last emesis last night after mom left. He has no appetite today and does not think he will eat. He was very focused on taking a dockmaster. Last dose insulin HEAD OF PRECISION TARGETING: removed pump and dad gave lantus 20 units around 7 pm on Wednesday. Current inpatient regimen: DKA insulin drip with D5 1/2 125 ml/hour. BG at time of consult: 104 Other Active/Contributory Medical Problems: hypothyroid Planned Procedures/Surgeries: none Relevant Labs on Admission: if contributory, otherwise see labs below Renal function: Creatinine (1.36), eGFR (76) BMP: Na (138), K (4.5) Bicarb (10), Anion Gap (30), Glucose (375) BhB: 4.90 Lactic Acid: 3.0 GAD65 antibody, zinc transporter 8 antibody, islet antibody, insulin antibody, and c-peptide not available on epic search Inpatient Glucose Trends: Diabetes History: Diabetes Type and Duration: 6 year old HEAD OF PRECISION TARGETING Medication Regimen: Medtronic Insulin pump but not here and does not know settings Review of EPIC for admission had Lantus 20 units if has pump malfunction , uses Humalog, discharge summary says uses 0.96 units.hour Historical Diabetes Medications: insulin Glucose monitoring device and frequency: tests at least daily, does not always test frequently--> does not like CGM so uses finger sticks, does not say why he does not like the CGM Outpatient Diabetes Provider: Primary care with bryan Menjivar NP Formal Diabetes Education/Educator: ? Complications: - peripheral neuropathy, -retinopathy -, -nephropathy, - gastroparesis, -macrovascular disease Last A1c: 12.9 on 11/17/2023 Hemoglobin at time of last A1c: 14.9 RBC transfusion in past 3 months: none History of DKA: yes, 03/05/2024( no infection etc found to cause DKA) and one other time not not requiring hospitalization Hypoglycemia HEAD OF PRECISION TARGETING: No - Frequency: not sure - Awareness: + intact gets weak, mom and dad over phone says he can tell when he is low and drinks juice Safety Kit: - Glucagon: not sure - Ketone Strips: no Medic Alert if Type 1: no Diet/Lifestyle: picky eater, does not always eat Ability to [place] Prescribed Regimen: not good Food/Housing Insecurity: no lives with dad Medications Impacting Glycemia: Steroids: none D5W containing solutions/medications: D5 1/2 at 125 ml/hour Other medications impacting glucose: none Diet/Nutrition: Orders Placed This Encounter Regular Diet Adult Supplements: none TF: none TPN: none Review of Systems: CC: Constitutional: - fever and chills. HEENT: - sinus congestion, or cold, maybe sore throat Cardiac: - chest pain, palpitations, or racing heart. Respiratory: - dyspnea on exertion and at rest. - wheezing and cough, GI: - abdominal pain, tenderness and bloating. + nausea and vomiting. - diarrhea. : has not urinated in ER Endocrine: - polyuria, polydipsia Past Medical History: Past Medical History: Diagnosis Date Diabetes (H) Thyroid disease Past Surgical History: No past surgical history on file. Social History: Social History Tobacco Use Smoking status: Passive Smoke Exposure - Never Smoker Smokeless tobacco: Never Substance Use Topics Alcohol use: No History Sexual Activity Sexual activity: Not on file Tobacco: no but lives with smoker Etoh: no Other Substance: did not ask Lives with dad Family History: Reviewed and non-contributory. Family History of Diabetes: No family history on file. Physical Exam: BP 123/89 (BP Location: Right arm) Pulse 79 Temp 99.2 ??F (37.3 ??C) (Oral) Resp 16 SpO2 100% General: in no acute distress. HEENT: NC/AT. MMM, sclera not injected Lungs: unremarkable, no new cough, work of breathing ABD: flat Skin: warm and dry, no obvious lesions MSK: moving all extremities Lymp: no LE edema Mental Status: Alert and oriented x3 Psych: Cooperative, poor eye contact, full/appropriate affect Feet: warm , without discoloration, without evidence of wounds, corns, calluses, or vascular compromise, pulses Laboratory Data: Lab Results Component Value Date A1C 12.9 (H) 11/17/2023 A1C 12.2 (H) 03/05/2023 Recent Labs Lab Test 11/18/23 0525 WBC 12.8* RBC 4.39* HGB 13.7 HCT 39.3* MCV 90 MCH 31.2 MCHC 34.9 RDW 12.1 PLT 257 Recent Labs Lab Test 11/18/23 1432 11/18/23 1357 11/18/23 1147 11/18/23 1118 11/18/23 0631 11/18/23 0525 NA -- -- -- 145 -- 143 POTASSIUM -- -- -- 3.5 -- 3.4 CHLORIDE -- -- -- 112* -- 114* CO2 -- -- -- 21* -- 19* ANIONGAP -- -- -- 12 -- 10 GLC 118* 147* < > 113* < > 161* 164* BUN -- -- -- 13.8 -- 16.2 CR -- -- -- 0.76 -- 0.72 DARYA -- -- -- 9.3 -- 9.1 < > = values in this interval not displayed. Recent Labs Lab Test 11/17/23 1539 PROTTOTAL 6.0* ALBUMIN 3.7 BILITOTAL 0.4 ALKPHOS 94 AST 17 ALT 11 Assessment and Recommendations: Hernan Pompa is a 18 year old male who has a history of mellitus type I, hypothyroidism presented to the ED with elevated, altered mental status and vomiting. Found to have diabetic ketoacidosis. History obtained via the patient, chart review and discussion with primary team. Assessment: Type 1 Diabetes Mellitus, without known complications Uncontrolled (A1c 12.9 on 11/17/2023 %) Previous 12.2 on 03/05/2024 Plan/Recommendations: - Continue DKA insulin drip, ketones trending down and gap has closed. If repeat Ketone is negativethen will change to non DKA insulin drip -Continue dextrose D5 1/2 fluid until he can eat -Allow diet as nausea this am he says is better and no emesis since last night - Novolog Meal Coverage: 1 units per 10 g CHO, TID AC and PRN with snacks/supplements - No Novolog Correction Scale: Since on insulin drip - BG monitoring: Every 1-2 hours on insulin drip - Hypoglycemia protocol - Carb counting protocol Discussion: Patient feeling better this morning with nausea improved and no emesis this am. Alteredmental status better. Mom is present and dad is on phone. Plan was to give diet and let him eat. Hewas going to try and eat despite no appetite. Mom was going to help him order food. He was going toshower. Depending on what ketone came back as would change to non DKA drip and possibly stop fluidsif able. Addendum: Ketone came back as higher so will leave on drip and dextrose fluid. He is having nausea again Addendum: RN informed me that patient is requesting to leave. Not on Syndevrx but contacted primary who had spoke with patient. Said if he is insistent in going to give lantus 18 units before he goes and start pump 24 hours later. Unfortunately per primary he signed paper and left before she came into discuss lantus. They will try and call. Addendum: Tried calling [facility] and left message asking him to come back to the ER or going to any ER that is closer. Worried that he is still in DKA with repeat ketone trending up=2.70 Discharge Planning: (tentative) Medications: TBD Test Claims: TBD Education: Needs to be assessed closer to discharge. Outpatient Follow-up: recommend [facility] Endocrinology vs PCP Discussed plan with patient and mom, bedside RN and primary team via [employer] Thank you for this consult. IDS will continue to follow. Please notify Inpatient Diabetes Service if changes are planned to steroids, nutrition, TPN/TF and anticipated procedures requiring prolonged NPO status. Jocelynn Grover PA-C Inpatient Diabetes Service [phone] Sreedhar Date of Service 11/18/2023 To contact Inpatient Diabetes Service: 7 AM - 5 PM: Page the IDS KHALIF following the patient that day (see filed or incomplete progress notes/consult notes under Endocrinology) OR if uncertain of provider assignment: page job code [id number] 5 PM - 7 AM: First call after hours is to primary service. For urgent after-hours questions, page job code for sap enterprise portal consultant fellow: [id number] I spent a total of 80 minutes on the date of the encounter doing prep/post-work, chart review, history and exam, documentation and further activities per the note including lab review, multidisciplinary communication, counseling the patient and/or coordinating care regarding acute hyper/hypoglycemic management, as well as discharge management and planning/communication. See note for details. documented in this encounter Miscellaneous Notes * Pharmacy-Admission Medication History - Case Wang RPH - 11/18/2023 1:00 PM CDT Pharmacist Admission Medication History Admission medication history is complete. The information provided in this note is only as accurateas the sources available at the time of the update. Information Source(s): Patient, Family member, and CareEverywhere/SureScripts via in-person Pertinent Information: - patient typically uses insulin pump filled w/ Humalog. If the pump were to ever fail, patient does have insulin glargine and lispro to use but could not remember what dose to use in that circumstance. Changes made to [facility] [employer] medication list: Added: Humalog vial to fill insulin pump Deleted: None Changed: None Allergies reviewed with patient and updates made in EHR: yes Medication History Completed By: Case Wang RPH 11/18/2023 1:00 PM [facility] [employer] Med List Medication Sig Last Dose Insulin Glargine (BASAGLAR KWIKPEN SC) Inject 18 Units Subcutaneous daily as needed If insulin pumpfailure Unknown insulin lispro (HUMALOG KWIKPEN) 100 UNIT/ML injection Inject subcutaneously as needed (if insulin pump fails) Unknown insulin lispro (HUMALOG VIAL) 100 UNIT/ML vial Inject subcutaneously See Admin Instructions insulinpump fill Unknown INSULIN PUMP - OUTPATIENT Date Last Updated: 03/05/2023 [employer] BASAL RATES and times: 0.96 units/hour Carb ratio: 7 Past Week * Plan of Care - Vicki Cohen RN - 11/18/2023 6:02 AM CDT Goal Outcome Evaluation: Plan of Care Reviewed With: patient Overall Patient Progress: improvingOverall Patient Progress: improving Outcome Evaluation: Throughout shift patient became more alert and oriented. Now able to have conversation with marine underwriter. Verbalized feeling much better than before. Intermittent nausea. Zofran given 1time for emesis. Denies pain, sob, N/T. Last BM 11/16 per patient. Voiding using urinal at bedside.Calls appropriately. Currently on alg 3 per DKA insulin gtt protocol. Last ketones 1.7 at midnight. Continue to monitor POC. * Plan of Care - Lauryn Fry RN - 11/17/2023 7:00 PM CDT Goal Outcome Evaluation: Pt admitted from [facility] at 1430 today. Arouses to voice but otherwise sleeping in between cares Oriented to self place and situation but not to time. Voice is hoarse and complains of throat pain Insulin drip running on ALG 4 per protocol. Phos resulted critically low, 15mmol replacement ordered and running Denies nausea but occasionally spitting up. No SOB, CP or N/T present UA collected and sent documented in this encounter Plan of Treatment Not on file documented as of this encounter Procedures Procedure [...] QUANTITATIVE, RAPID Timed 11/18/2023 5:25 AM CDT BASIC METABOLIC PANEL Timed 11/18/2023 5:25 AM CDT CBC WITH PLATELETS Routine 11/18/2023 5: 25 AM CDT GLUCOSE BY METER Routine 11/18/2023 4:09 AM CDT GLUCOSE BY METER Routine 11/18/2023 2:53 AM CDT GLUCOSE BY METER Routine 11/18/2023 2:13 AM CDT GLUCOSE BY METER Routine 11/18/2023 1:13 AM CDT PHOSPHORUS Timed 11/17/2023 11:47 PM CDT KETONE BETA-HYDROXYBUTYRATE QUANTITATIVE, RAPID Timed 11/17/2023 11:47 PM CDT BASIC METABOLIC PANEL Timed 11/17/2023 11:47 PM CDT GLUCOSE BY METER Routine 11/17/2023 11:4 6 PM CDT GLUCOSE BY METER Routine 11/17/2023 11:2 9 PM CDT GLUCOSE BY METER Routine 11/17/2023 10:3 2 PM CDT PHOSPHORUS Timed 11/17/2023 10:05 PM CDT KETONE BETA-HYDROXYBUTYRATE QUANTITATIVE, RAPID Timed 11/17/2023 10:05 PM CDT BLOOD GAS VENOUS Timed 11/17/2023 10:0 5 PM CDT BASIC METABOLIC PANEL Timed 11/17/2023 [...] 11/17/2023 3:43 PM CDT CBC WITH PLATELETS AND DIFFERENTIAL STAT 11/17/2023 3:39 PM CDT CBC WITH PLATELETS & DIFFERENTIAL STAT 11/17/2023 3:39 PM CDT PHOSPHORUS STAT 11/17/2023 3:39 PM CDT OSMOLALITY STAT 11/17/2023 3:39 PM CDT MAGNESIUM STAT 11/17/2023 3:39 PM CDT LACTIC ACID WHOLE BLOOD STAT 11/17/2023 3:39 PM CDT KETONE BETA-HYDROXYBUTYRATE QUANTITATIVE, RAPID STAT 11/17/2023 3:39 PM CDT HEPATIC FUNCTION PANEL STAT 11/17/2023 3:39 PM CDT BLOOD GAS VENOUS STAT 11/17/2023 3:39 PM CDT BASIC METABOLIC PANEL STAT 11/17/2023 3:39 PM CDT GLUCOSE BY METER Routine 11/17/2023 3:28 PM CDT GLUCOSE BY METER Routine 11/17/2023 2:30 PM CDT documented in this encounter Results * (ABNORMAL) Glucose by meter (11/18/2023 2:32 PM CDT) GLUCOSE BY METER POCT 118(H) 70 - 99 mg/dL 11/18/2023 2:39 PM CDT UR LABORATORY POC Blood, Capillary BLOOD SPECIMEN / Unknown 11/18/2023 2:32 PM CDT 11/18/2023 2:39 PM CDT Darrius KNIGHT POCT UR LABORATORY POC [facility] Acute Care Lab [address], [address] [place] [address] * (ABNORMAL) Glucose by meter (11/18/2023 1:57 PM CDT) GLUCOSE BY METER POCT 147(H) 70 - 99 mg/dL 11/18/2023 2:08 PM CDT UR LABORATORY POC Blood, Capillary BLOOD SPECIMEN / Unknown 11/18/2023 1:57 PM CDT 11/18/2023 2:08 PM CDT Darrius MORILLO - BEAKER POCT UR LABORATORY POC [facility] Acute Care Lab [address] [place] [address], [address] [address], [facility] * (ABNORMAL) Glucose by meter (11/18/2023 12:49 PM CDT) GLUCOSE BY METER POCT 165(H) 70 - 99 mg/dL 11/18/2023 12:59 PM CDT UR LABORATORY POC Blood, Capillary BLOOD SPECIMEN / Unknown 11/18/2023 12:49 PM CDT 11/18/2023 12:59 PM CDT Darrius KNIGHT POCT UR LABORATORY POC [facility] Care Lab [address] [place] [address], [address] [address] * (ABNORMAL) Glucose by meter (11/18/2023 11:47 AM CDT) GLUCOSE BY METER POCT 126(H) 70 - 99 mg/dL 11/18/2023 11:54 AM CDT UR LABORATORY POC Blood, Capillary BLOOD SPECIMEN / Unknown 11/18/2023 11:47 AM CDT 11/18/2023 11:54 AM CDT Darrius KNIGHT POCT UR LABORATORY POC [facility] Acute Care Lab [address] [place] [address], [address] * (ABNORMAL) Ketone Beta-Hydroxybutyrate Quantitative (11/18/2023 11:18 AM CDT) Ketone (Beta-Hydroxybut yrate) Quantitative 2.70(HH) <=0.30 mmol/L 11/18/2023 12:21 PM CDT UR LABORATORY Blood STRUCTURE OF RIGHT UPPER LIMB / Unknown Venipuncture / Unknown 11/18/2023 11:18 AM CDT 11/18/2023 11:38 AM CDT Jocelynn Grover PA-C LAB - BLOOD ORDERABL ES UR LABORATORY [facility] Acute Care Lab [address], [address] * (ABNORMAL) Basic metabolic panel (11/18/2023 11:18 AM CDT) Sodium 145 135 - 145 mmol/L 11/18/2023 [...] AM CDT UR LABORATORY Comment:eGFR calculated usin g 2020 CKD-EPI equation. Calcium 9.3 8.6 - 10.0 mg/dL 11/18/2023 11:59 AM CDT UR LABORATORY Glucose 113(H) 70 - 99 mg/dL 11/18/2023 11:59 AM CDT UR LABORATORY Blood STRUCTURE OF RIGHT UPPER LIMB / Unknown Venipuncture / Unknown 11/18/2023 11:18 AM CDT 11/18/2023 11:38 AM CDT Jocelynn Grover PA-C LAB - BLOOD ORDERABL ES UR LABORATORY [facility] Acute Care Lab [address] [place] [address], [address] [place] [phone] * Glucose by meter (11/18/2023 11:13 AM CDT) GLUCOSE BY METER POCT 86 70 - 99 mg/dL 11/18/2023 11:20 AM CDT UR LABORATORY POC Blood, Capillary BLOOD SPECIMEN / Unknown 11/18/2023 11:13 AM CDT 11/18/2023 11:20 AM CDT Darrius KNIGHT POCT UR LABORATORY POC [facility] Care Lab [address] [place] [address], [address] [place] [phone] * Glucose by meter (11/18/2023 10:12 AM CDT) GLUCOSE BY METER POCT 78 70 - 99 mg/dL 11/18/2023 10:23 AM CDT UR LABORATORY POC Blood, Capillary BLOOD SPECIMEN / Unknown 11/18/2023 10:12 AM CDT 11/18/2023 10:23 AM CDT Darrius KNIGHT POCT UR LABORATORY POC [facility] Acute Care Lab [address] [place] [address], [address] [address], [facility] * (ABNORMAL) Glucose by meter (11/18/2023 8:33 AM CDT) GLUCOSE BY METER POCT 104(H) 70 - 99 mg/dL 11/18/2023 8:39 AM CDT UR LABORATORY POC Blood, Capillary BLOOD SPECIMEN / Unknown 11/18/2023 8:33 AM CDT 11/18/2023 8:39 AM CDT Darrius KNIGHT POCT UR LABORATORY POC [facility] Acute Care Lab [address] [place] [address], [address] * (ABNORMAL) Glucose by meter (11/18/2023 7:11 AM CDT) GLUCOSE BY METER POCT 127(H) 70 - 99 mg/dL 11/18/2023 7:18 AM CDT UR LABORATORY POC Blood, Capillary BLOOD SPECIMEN / Unknown 11/18/2023 7:11 AM CDT 11/18/2023 7:18 AM CDT Darrius KNIGHT POCT UR LABORATORY POC [facility] Lab [address] [place] [address], [address] * (ABNORMAL) Glucose by meter (11/18/2023 6:31 AM CDT) GLUCOSE BY METER POCT 142(H) 70 - 99 mg/dL 11/18/2023 6:38 AM CDT UR LABORATORY POC Blood, Capillary BLOOD SPECIMEN / Unknown 11/18/2023 6:31 AM CDT 11/18/2023 6:38 AM CDT Darrius KNIGHT POCT UR LABORATORY POC [facility] Acute Care Lab [address] [place] [address], [address] [place] [phone] [place] [address] * (ABNORMAL) Glucose by meter (11/18/2023 5:25 AM CDT) GLUCOSE BY METER POCT 161(H) 70 - 99 mg/dL 11/18/2023 5:31 AM CDT UR LABORATORY POC Blood, venous BLOOD SPECIMEN / Unknown 11/18/2023 5:25 AM CDT 11/18/2023 5:31 AM CDT Darrius Ba MD LAB - BEAKER POCT UR LABORATORY POC [facility] Lab [address] [place] [address], [address] * (ABNORMAL) Phosphorus (11/18/2023 5:25 AM CDT) Phosphorus 1.0(L) 2.5 - 4.5 mg/dL 11/18/2023 6:41 AM CDT UR LABORATORY Blood STRUCTURE OF RIGHT HAND / Unknown Venipuncture / Unknown 11/18/2023 5:25 AM CDT 11/18/2023 6:11 AM CDT Darrius Ba MD LAB - BLOOD ORDERA BLES Performing Organization Address City/[facility]/ZIP Co de Phone Number UR LABORATORY [facility] Lab [address] [place] [address], [address] * (ABNORMAL) Ketone Beta-Hydroxybutyrate Quantitative (11/18/2023 5:25 AM CDT) Ketone (Beta-Hydroxybuty rate) Quantitative 1.40(H) <=0.30 mmol/L 11/18/2023 6:41 AM CDT UR LABORATORY Blood STRUCTURE OF RIGHT HAND / Unknown Venipuncture / Unknown 11/18/2023 5:25 AM CDT 11/18/2023 6:11 AM CDT Darrius Ba MD LAB - BLOOD ORDERA BLES UR LABORATORY [facility] Care Lab [address], [address] [place] [address] * (ABNORMAL) CBC with platelets (11/18/2023 5:25 AM CDT) [facility] WBC Count 12.8(H) 4.0 - 11.0 10e3/uL [...] LAB - BLOOD ORDERA BLES UR LABORATORY [facility] Acute Care Lab [address], [address] [place] [address] * (ABNORMAL) Basic metabolic panel (11/18/2023 5:25 AM CDT) [facility] Sodium 143 135 - 145 mmol/L 11/18/2023 6:41 AM CDT UR LABORATORY Potassium 3.4 3.4 - 5.3 mmol/L 11/18/2023 6:41 AM CDT UR LABORATORY Chloride 114(H) 98 - 107 mmol/L 11/18/2023 6:41 AM CDT UR LABORATORY Carbon Dioxide (CO2) 19(L) 22 - 29 mmol/L 11/18/2023 6:41 AM CDT UR LABORATORY Anion Gap 10 7 - 15 mmol/L 11/18/2023 6:41 AM CDT UR LABORATORY Urea Nitrogen 16.2 6.0 - 20.0 mg/dL 11/18/2023 6:41 AM CDT UR LABORATORY Creatinine 0.72 0.67 - 1.17 mg/dL 11/18/2023 6:41 AM CDT UR LABORATORY GFR Estimate >90 >60 mL/min/1.7 3m2 11/18/2023 6:41 AM CDT UR LABORATORY Comment:eGFR calculated usin 2020 CKD-EPI equation. Calcium 9.1 8.6 - 10.0 mg/dL 11/18/2023 6:41 AM CDT UR LABORATORY Glucose 164(H) 70 - 99 mg/dL 11/18/2023 6:41 AM CDT UR LABORATORY Blood STRUCTURE OF RIGHT HAND / Unknown Venipuncture / Unknown 11/18/2023 5:25 AM CDT 11/18/2023 6:11 AM CDT Darrius Ba MD LAB - BLOOD ORDERA BLES UR LABORATORY [facility] Acute Care Lab [address] [place] [address], [address] [phone] * (ABNORMAL) Glucose by meter (11/18/2023 4:09 AM CDT) GLUCOSE BY METER POCT 147(H) 70 - 99 mg/dL 11/18/2023 4:16 AM CDT UR LABORATORY POC Blood, Capillary BLOOD SPECIMEN / Unknown 11/18/2023 4:09 AM CDT 11/18/2023 4:16 AM CDT Darrius Ba MD LAB - BEAKER POCT UR LABORATORY POC [facility] Acute Care Lab [address] [place] [address], [address] [phone] * (ABNORMAL) Glucose by meter (11/18/2023 2:53 AM CDT) GLUCOSE BY METER POCT 106(H) 70 - 99 mg/dL 11/18/2023 3:00 AM CDT UR LABORATORY POC Blood, Capillary BLOOD SPECIMEN / Unknown 11/18/2023 2:53 AM CDT 11/18/2023 3:00 AM CDT Darrius MORILLO - ANTONIA POCT Performing Organization Address City/[facility]/ZIP Co de Phone Number UR LABORATORY POC [facility] Lab [address] [place] [address], [address] [phone] * Glucose by meter (11/18/2023 2:13 AM CDT) GLUCOSE BY METER POCT 92 70 - 99 mg/dL 11/18/2023 2:20 AM CDT UR LABORATORY POC Blood, Capillary BLOOD SPECIMEN / Unknown 11/18/2023 2:13 AM CDT 11/18/2023 2:20 AM CDT Darrius MORILLO - ANTONIA POCT Performing Organization Address City/[facility]/ZIP Co de Phone Number UR LABORATORY POC [facility] Care Lab [address] [place] [address], [address] [phone] * Glucose by meter (11/18/2023 1:13 AM CDT) GLUCOSE BY METER POCT 98 70 - 99 mg/dL 11/18/2023 1:20 AM CDT UR LABORATORY POC Blood, Capillary BLOOD SPECIMEN / Unknown 11/18/2023 1:13 AM CDT 11/18/2023 1:20 AM CDT Darrius KNIGHT POCT UR LABORATORY POC [facility] Acute Care Lab [address], [address] [place] [address] * (ABNORMAL) Basic metabolic panel (11/17/2023 11:47 PM CDT) Sodium 144 135 - 145 mmol/L 11/18/2023 12:21 AM CDT UR LABORATORY Potassium 3.2(L) 3.4 - 5.3 mmol/L 11/18/2023 12:21 AM CDT UR LABORATORY Chloride 114(H) 98 - 107 mmol/L 11/18/2023 12:21 AM CDT UR LABORATORY Carbon Dioxide (CO2) 19(L) 22 - 29 mmol/L 11/18/2023 12:21 AM CDT UR LABORATORY Anion Gap 11 7 - 15 mmol/L 11/18/2023 12:21 AM CDT UR LABORATORY Urea Nitrogen 18.5 6.0 - 20.0 mg/dL 11/18/2023 12:21 AM CDT UR LABORATORY Creatinine 0.81 0.67 - 1.17 mg/dL 11/18/2023 12:21 AM CDT UR LABORATORY GFR Estimate >90 >60 mL/min/1.7 3m2 11/18/2023 12:21 AM CDT UR LABORATORY Comment:eGFR calculated usin 2020 CKD-EPI equation. Calcium 8.4(L) 8.6 - 10.0 mg/dL 11/18/2023 12:21 AM CDT UR LABORATORY Glucose 124(H) 70 - 99 mg/dL 11/18/2023 12:21 AM CDT UR LABORATORY Blood BLOOD SPECIMEN / Unknown Venipuncture / Unknown 11/17/2023 11:47 PM CDT 11/17/2023 11:51 PM CDT Samuel Echeverria MD LAB - BLOOD ORDERABL ES UR LABORATORY [facility] Acute Care Lab [address], [address] [place] [address] * (ABNORMAL) Ketone Beta-Hydroxybutyrate Quantitative (11/17/2023 11:47 PM CDT) Ketone (Beta-Hydroxybut yrate) Quantitative 1.70(HH) <=0.30 mmol/L 11/18/2023 12:25 AM CDT UR LABORATORY Blood BLOOD SPECIMEN / Unknown Venipuncture / Unknown 11/17/2023 11:47 PM CDT 11/17/2023 11:51 PM CDT Samuel Echeverria MD LAB - BLOOD ORDERABL ES UR LABORATORY [facility] Care Lab [address] [place] [address], [address] [phone], [place] * (ABNORMAL) Phosphorus (11/17/2023 11:47 PM CDT) Phosphorus 1.6(L) 2.5 - 4.5 mg/dL 11/18/2023 12:21 AM CDT UR LABORATORY Blood BLOOD SPECIMEN / Unknown Venipuncture / Unknown 11/17/2023 11:47 PM CDT 11/17/2023 11:51 PM CDT Samuel Echeverria MD LAB - BLOOD ORDERABL ES Performing Organization Address [facility]/ZIP Co de Phone Number UR LABORATORY [facility] Care Lab [address] [place] [address], [address] [address] * (ABNORMAL) Glucose by meter (11/17/2023 11:46 PM CDT) GLUCOSE BY METER POCT 122(H) 70 - 99 mg/dL 11/17/2023 11:53 PM CDT UR LABORATORY POC Blood, venous BLOOD SPECIMEN / Unknown 11/17/2023 11:46 PM CDT 11/17/2023 11:53 PM CDT Darrius Ba MD LAB - BEAKER POCT UR LABORATORY POC [facility] Care Lab [address] [place] [address], [address] [phone] * (ABNORMAL) Glucose by meter (11/17/2023 11:29 PM CDT) GLUCOSE BY METER POCT 119(H) 70 - 99 mg/dL 11/17/2023 11:36 PM CDT UR LABORATORY POC Blood, Capillary BLOOD SPECIMEN / Unknown 11/17/2023 11:29 PM CDT 11/17/2023 11:36 PM CDT Darrius MORILLO - BEWarranty Life POCT UR LABORATORY POC [facility] Acute Care Lab [address] [place] [address], [address] [address] * (ABNORMAL) Glucose by meter (11/17/2023 10:32 PM CDT) GLUCOSE BY METER POCT 109(H) 70 - 99 mg/dL 11/17/2023 10:39 PM CDT UR LABORATORY POC Blood, Capillary BLOOD SPECIMEN / Unknown 11/17/2023 10:32 PM CDT 11/17/2023 10:39 PM CDT Darrius MORILLO - Envision SolarMARIA M POCT UR LABORATORY POC [facility] Care Lab [address] [place] [address], [address] [phone] * (ABNORMAL) Blood gas venous (11/17/2023 10:05 PM CDT) pH Venous 7.34 7.32 - 7.43 11/17/2023 [...] - BLOOD ORDERABL ES Performing Organization Address City/[facility]/ZIP Co de Phone Number UR LABORATORY [facility] Lab [address] [place] [address], [address] * (ABNORMAL) Phosphorus (11/17/2023 10:05 PM CDT) Phosphorus 1.8(L) 2.5 - 4.5 mg/dL 11/17/2023 10:28 PM CDT UR LABORATORY Blood STRUCTURE OF RIGHT UPPER LIMB / Unknown Venipuncture / Unknown 11/17/2023 10:05 PM CDT 11/17/2023 10:09 PM CDT Zahida RICHARDSON LAB - BLOOD ORDERABL ES UR LABORATORY [facility] Lab [address] [place] [address], [address] * (ABNORMAL) Ketone Beta-Hydroxybutyrate Quantitative (11/17/2023 10:05 PM CDT) Ketone (Beta-Hydroxybut yrate) Quantitative 2.30(HH) <=0.30 mmol/L 11/17/2023 10:32 PM CDT UR LABORATORY Blood STRUCTURE OF RIGHT UPPER LIMB / Unknown Venipuncture / Unknown 11/17/2023 10:05 PM CDT 11/17/2023 10:09 PM CDT Zahida RICHARDSON LAB - BLOOD ORDERABL ES UR LABORATORY [facility] Lab [address] [place] [address] * (ABNORMAL) Basic metabolic panel (11/17/2023 10:05 PM CDT) Sodium 142 135 - 145 mmol/L 11/17/2023 10:28 PM CDT UR LABORATORY Potassium 3.5 3.4 - 5.3 mmol/L 11/17/2023 10:28 PM CDT UR LABORATORY Chloride 113(H) 98 - 107 mmol/L 11/17/2023 10:28 PM CDT UR LABORATORY Carbon Dioxide (CO2) 17(L) 22 - 29 mmol/L 11/17/2023 10:28 PM CDT UR LABORATORY Anion Gap 12 7 - 15 mmol/L 11/17/2023 10:28 PM CDT UR LABORATORY Urea Nitrogen 20.2(H) 6.0 - 20.0 mg/dL 11/17/2023 10:28 PM CDT UR LABORATORY Creatinine 0.90 0.67 - 1.17 mg/dL 11/17/2023 10:28 PM CDT UR LABORATORY GFR Estimate >90 >60 mL/min/1.7 3m2 11/17/2023 10:28 PM CDT UR LABORATORY Comment:eGFR calculated usin 2020 CKD-EPI equation. Calcium 8.9 8.6 - 10.0 mg/dL 11/17/2023 10:28 PM CDT UR LABORATORY Glucose 123(H) 70 - 99 mg/dL 11/17/2023 10:28 PM CDT UR LABORATORY Blood STRUCTURE OF RIGHT UPPER LIMB / Unknown Venipuncture / Unknown 11/17/2023 10:05 PM CDT 11/17/2023 10:09 PM CDT Zahida RICHARDSON LAB - BLOOD ORDERABL ES UR LABORATORY [facility] Lab [address] [place] [address], [address] * (ABNORMAL) Glucose by meter (11/17/2023 9:30 PM CDT) GLUCOSE BY METER POCT 106(H) 70 - 99 mg/dL 11/17/2023 9:37 PM CDT UR LABORATORY POC Blood, Capillary BLOOD SPECIMEN / Unknown 11/17/2023 9:30 PM CDT 11/17/2023 9:37 PM CDT Darrius MORILLO - BEMARIA M POCT Performing Organization Address City/[facility]/ZIP Co de Phone Number UR LABORATORY POC [facility] Lab [address] [place] [address], [address] * (ABNORMAL) Glucose by meter (11/17/2023 8:35 PM CDT) GLUCOSE BY METER POCT 109(H) 70 - 99 mg/dL 11/17/2023 8:41 PM CDT UR LABORATORY POC Blood, Capillary BLOOD SPECIMEN / Unknown 11/17/2023 8:35 PM CDT 11/17/2023 8:41 PM CDT Darrius Menezes BEMARIA M POCT UR LABORATORY POC [facility] Lab [address] [place] [address], [address] [place] [id number] * (ABNORMAL) Glucose by meter (11/17/2023 7:35 PM CDT) GLUCOSE BY METER POCT 113(H) 70 - 99 mg/dL 11/17/2023 7:42 PM CDT UR LABORATORY POC Blood, Capillary BLOOD SPECIMEN / Unknown 11/17/2023 7:35 PM CDT 11/17/2023 7:42 PM CDT Darrius Ba MD LAB - BEAKER POCT UR LABORATORY POC [facility] Lab [address] [place] [address], [address] * (ABNORMAL) Glucose by meter (11/17/2023 6:39 PM CDT) GLUCOSE BY METER POCT 129(H) 70 - 99 mg/dL 11/17/2023 7:39 PM CDT UR LABORATORY POC Blood, Capillary BLOOD SPECIMEN / Unknown 11/17/2023 6:39 PM CDT 11/17/2023 7:39 PM CDT Darrius Menezes BEMARIA M POCT Performing Organization Address [facility]/ZIP Co de Phone Number UR LABORATORY POC [facility] [address] [place] [address], Room [address] * (ABNORMAL) Blood gas venous (11/17/2023 6:12 PM CDT) pH Venous 7.32 7.32 - 7.43 11/17/2023 6:21 PM CDT UR LABORATORY pCO2 Venous 39(L) 40 - 50 mm Hg 11/17/2023 6:21 PM CDT UR LABORATORY pO2 Venous 28 25 - 47 mm Hg 11/17/2023 6:21 PM CDT UR LABORATORY Bicarbonate Venous 20(L) 21 - 28 mmol/L 11/17/2023 6:21 PM CDT UR LABORATORY Base Excess/Deficit Venous -5.5(L) -3.0 - 3.0 mmol/L 11/17/2023 6:21 PM CDT UR LABORATORY FIO2 21 RENÉ 11/17/2023 6:21 PM CDT UR LABORATORY Oxyhemoglobin Venous 57(L) 70 - 75 % 11/17/2023 6:21 PM CDT UR LABORATORY O2 Sat, Venous 58.0(L) 70.0 - 75.0 % 11/17/2023 6:21 PM CDT UR LABORATORY Blood, venous STRUCTURE OF RIGHT UPPER LIMB / Unknown Venipuncture / Unknown 11/17/2023 6:12 PM CDT 11/17/2023 6:16 PM CDT Narrative UR LABORATORY - 11/17/2023 6:21 PM CDT In healthy individuals, oxyhemoglobin (O2Hb) and oxygen saturation (SO2) are approximately equal. In the presence of dyshemoglobins, oxyhemoglobin can be considerably lower than oxygen saturation. Zahida RICHARDSON LAB - BLOOD ORDERABL ES UR LABORATORY [facility] [address] [place] [address], Room [address] * (ABNORMAL) Phosphorus (11/17/2023 6:09 PM CDT) Phosphorus 1.0(L) 2.5 - 4.5 mg/dL 11/17/2023 6:37 PM CDT UR LABORATORY Blood STRUCTURE OF RIGHT UPPER LIMB / Unknown Venipuncture / Unknown 11/17/2023 6:09 PM CDT 11/17/2023 6:16 PM CDT Zahida RICHARDSON LAB - BLOOD ORDERABL ES UR LABORATORY [facility] [address] [place] [address], Room [address] * (ABNORMAL) Ketone Beta-Hydroxybutyrate Quantitative (11/17/2023 6:09 PM CDT) Ketone (Beta-Hydroxybut yrate) Quantitative 2.70(HH) <=0.30 mmol/L 11/17/2023 6:53 PM CDT UR LABORATORY Blood STRUCTURE OF RIGHT UPPER LIMB / Unknown Venipuncture / Unknown 11/17/2023 6:09 PM CDT 11/17/2023 6:16 PM CDT Zahida RICHARDSON LAB - BLOOD ORDERABL ES UR LABORATORY [facility] [address] [facility], Room [place] [phone] * (ABNORMAL) Basic metabolic panel (11/17/2023 6:09 PM CDT) Sodium 143 135 - 145 mmol/L 11/17/2023 6:37 PM CDT UR LABORATORY Potassium 3.6 3.4 - 5.3 mmol/L 11/17/2023 6:37 PM CDT UR LABORATORY Chloride 114(H) 98 - 107 mmol/L 11/17/2023 6:37 PM CDT UR LABORATORY Carbon Dioxide (CO2) 18(L) 22 - 29 mmol/L 11/17/2023 6:37 PM CDT UR LABORATORY Anion Gap 11 7 - 15 mmol/L 11/17/2023 6:37 PM CDT UR LABORATORY Urea Nitrogen 21.7(H) 6.0 - 20.0 mg/dL 11/17/2023 6:37 PM CDT UR LABORATORY Creatinine 1.05 0.67 - 1.17 mg/dL 11/17/2023 6:37 PM CDT UR LABORATORY GFR Estimate >90 >60 mL/min/1.7 3m2 11/17/2023 6:37 PM CDT UR LABORATORY Comment:eGFR calculated usin 2020 CKD-EPI equation. Calcium 9.2 8.6 - 10.0 mg/dL 11/17/2023 6:37 PM CDT UR LABORATORY Glucose 119(H) 70 - 99 mg/dL 11/17/2023 6:37 PM CDT UR LABORATORY Blood STRUCTURE OF RIGHT UPPER LIMB / Unknown Venipuncture / Unknown 11/17/2023 6:09 PM CDT 11/17/2023 6:16 PM CDT Zahida RICHARDSON LAB - BLOOD ORDERABL ES UR LABORATORY [facility] [address] [facility], [address] [phone] * (ABNORMAL) UA with Microscopic reflex to Culture (11/17/2023 5:50 PM CDT) Color Urine Yellow Colorless, Straw, Light Yellow, Yellow 11/17/2023 6:13 PM CDT UR LABORATORY Appearance Urine Clear Clear 11/17/19 6:13 PM CDT UR LABORATORY Glucose Urine 300(A) Negative mg/dL 11/17/2023 6:13 PM CDT UR LABORATORY Bilirubin Urine Negative Negative 6:13 PM CDT UR LABORATORY Ketones Urine 40(A) Negative mg/dL 11/17/2023 6:13 PM CDT UR LABORATORY Specific [place] Urine 1.023 1.003 - 1.035 11/17/2023 6:13 [...] LAB - URINE ORDERABL ES UR LABORATORY [facility] [address] [place] [address], [address] [phone] * (ABNORMAL) Glucose by meter (11/17/2023 5:34 PM CDT) GLUCOSE BY METER POCT 114(H) 70 - 99 mg/dL 11/17/2023 5:43 PM CDT UR LABORATORY POC Blood, Capillary BLOOD SPECIMEN / Unknown 11/17/2023 5:34 PM CDT 11/17/2023 5:43 PM CDT Darrius Ba MD LAB - BEWarrant[employer] Life POCT UR LABORATORY POC [facility] [address] [place] [address], [address] [phone] * (ABNORMAL) Glucose by meter (11/17/2023 4:33 PM CDT) GLUCOSE BY METER POCT 114(H) 70 - 99 mg/dL 11/17/2023 4:40 PM CDT UR LABORATORY POC Blood, Capillary BLOOD SPECIMEN / Unknown 11/17/2023 4:33 PM CDT 11/17/2023 4:40 PM CDT Darrius Ba MD LAB - [place] POCT UR LABORATORY POC [facility] [address] [place] [address], [address] [phone] * EKG 12-lead, tracing only - DKA (11/17/2023 3:43 PM CDT) Systolic Blood Pressure mmHg RADIOLOGY RESULTS Diastolic Blood Pressure mmHg RADIOLOGY RESULTS Ventricular Rate 81 BPM RAD IOLOGY RESULTS Atrial Rate 81 BPM RADIOLOG Y RESULTS ME Interval 116 ms RADIOLOG Y RESULTS QRS Duration 80 ms RADIOLO GY RESULTS QT 366 ms RADIOLOGY RESULTS QTc 425 ms RADIOLOGY RESULTS P [place] 83 degrees RADIOLOGY RESULTS R AXIS 52 degrees RADIOLOGY RESULTS T [place] 64 degrees RADIOLOGY RESULTS Interpretation ECG Sinus [...] RICHARDSON ECG ORDERABLES RADIOLOGY RESULTS * (ABNORMAL) Blood gas venous (11/17/2023 3:39 PM CDT) pH Venous 7.30(L) 7.32 - 7.43 11/17/2023 4:22 PM CDT UR LABORATORY pCO2 Venous 38(L) 40 - 50 mm Hg 11/17/2023 4:22 PM CDT UR LABORATORY pO2 Venous 30 25 - 47 mm Hg 11/17/2023 4:22 PM CDT UR LABORATORY Bicarbonate Venous 19(L) 21 - 28 mmol/L 11/17/2023 4:22 PM CDT UR LABORATORY Base Excess/Deficit Venous -7.1(L) -3.0 - 3.0 mmol/L 11/17/2023 4:22 PM CDT UR LABORATORY FIO2 21 RENÉ 11/17/2023 4:22 PM CDT UR LABORATORY Oxyhemoglobin Venous 60(L) 70 - 75 % 11/17/2023 4:22 PM CDT UR LABORATORY O2 Sat, Venous 60.7(L) 70.0 - 75.0 % 11/17/2023 4:22 PM CDT UR LABORATORY Blood, venous STRUCTURE OF RIGHT UPPER LIMB / Unknown Venipuncture / Unknown 11/17/2023 3:39 PM CDT 11/17/2023 4:21 PM CDT Narrative UR LABORATORY - 11/17/2023 4:22 PM CDT In healthy individuals, oxyhemoglobin (O2Hb) and oxygen saturation (SO2) are approximately equal. In the presence of dyshemoglobins, oxyhemoglobin can be considerably lower than oxygen saturation. Zahida RICHARDSON LAB - BLOOD ORDERABL ES UR LABORATORY [facility] [address] [facility], [address] [place] [address], [facility] * (ABNORMAL) CBC with platelets and differential (11/17/2023 3:39 PM CDT) WBC Count 15.1(H) 4.0 - 11.0 10e3/uL [...] LAB - BLOOD ORDERABL ES UR LABORATORY [facility] [address] [place] [address], Room [address] * Lactic acid whole blood (11/17/2023 3:39 PM CDT) Lactic Acid 1.1 0.7 - 2.0 mmol/L 11/17/2023 3:49 PM CDT UR LABORATORY Blood STRUCTURE OF RIGHT UPPER LIMB / Unknown Venipuncture / Unknown 11/17/2023 3:39 PM CDT 11/17/2023 3:46 PM CDT Zahida RICHARDSON LAB - BLOOD ORDERABL ES UR LABORATORY [facility] [address] [place] [address], Room [address] * (ABNORMAL) Hepatic panel (11/17/2023 3:39 PM [...] LAB - BLOOD ORDERABL ES UR LABORATORY [facility] [address] [facility], [address] [place] [address], [facility] * Magnesium (11/17/2023 3:39 PM CDT) Pathologist [facility] Magnesium 2.2 1.7 - 2.3 mg/dL 11/17/2023 5:26 PM CDT UR LABORATORY Blood STRUCTURE OF RIGHT UPPER LIMB / Unknown Venipuncture / Unknown 11/17/2023 3:39 PM CDT 11/17/2023 5:08 PM CDT Zahida RICHARDSON LAB - BLOOD ORDERABL ES UR LABORATORY [facility] [facility], Room [place] [phone] [place] [address] * (ABNORMAL) Phosphorus (11/17/2023 3:39 PM CDT) Phosphorus 0.8(LL) 2.5 - 4.5 mg/dL 11/17/2023 5:32 PM CDT UR LABORATORY Blood STRUCTURE OF RIGHT UPPER LIMB / Unknown Venipuncture / Unknown 11/17/2023 3:39 PM CDT 11/17/2023 5:08 PM CDT Zahida RICHARDSON LAB - BLOOD ORDERABL ES Performing Organization Address [facility] Co de Phone Number UR LABORATORY [facility] [address] [place] [address], Room [place] [phone] * (ABNORMAL) Osmolality (11/17/2023 3:39 PM CDT) [...] - BLOOD ORDERABL ES Performing Organization Address [facility]/ZIP Co de Phone Number UR LABORATORY [facility] [address] [place] [address], Room [address] * (ABNORMAL) Ketone Beta-Hydroxybutyrate Quantitative (11/17/2023 3:39 PM CDT) Ketone (Beta-Hydroxybut yrate) Quantitative 2.00(HH) <=0.30 mmol/L 11/17/2023 5:32 PM CDT UR LABORATORY Blood STRUCTURE OF RIGHT UPPER LIMB / Unknown Venipuncture / Unknown 11/17/2023 3:39 PM CDT 11/17/2023 5:08 PM CDT Zahida RICHARDSON LAB - BLOOD ORDERABL ES UR LABORATORY [facility] [address] [facility], [address] * (ABNORMAL) Basic metabolic panel (11/17/2023 3:39 PM CDT) Sodium 143 135 - 145 mmol/L 11/17/2023 6:09 PM CDT UR LABORATORY Potassium 3.7 3.4 - 5.3 mmol/L 11/17/2023 6:09 PM CDT UR LABORATORY Chloride 114(H) 98 - 107 mmol/L 11/17/2023 6:09 PM CDT UR LABORATORY Carbon Dioxide (CO2) 14(L) 22 - 29 mmol/L 11/17/2023 6:09 PM CDT UR LABORATORY Anion Gap 15 7 - 15 mmol/L 11/17/2023 6:09 PM CDT UR LABORATORY Urea Nitrogen 22.8(H) 6.0 - 20.0 mg/dL 11/17/2023 6:09 PM CDT UR LABORATORY Creatinine 1.07 0.67 - 1.17 mg/dL 11/17/2023 6:09 PM CDT UR LABORATORY GFR Estimate >90 >60 mL/min/1.7 3m2 11/17/2023 6:09 PM CDT UR LABORATORY Comment:eGFR calculated usin 2020 CKD-EPI equation. Calcium 9.4 8.6 - 10.0 mg/dL 11/17/2023 6:09 PM CDT UR LABORATORY Glucose 148(H) 70 - 99 mg/dL 11/17/2023 6:09 PM CDT UR LABORATORY Blood STRUCTURE OF RIGHT UPPER LIMB / Unknown Venipuncture / Unknown 11/17/2023 3:39 PM CDT 11/17/2023 5:08 PM CDT Zahida RICHARDSON LAB - BLOOD ORDERABL ES UR LABORATORY [facility] [address] [place] [address], Room [place] [phone] * (ABNORMAL) Glucose by meter (11/17/2023 3:28 PM CDT) GLUCOSE BY METER POCT 144(H) 70 - 99 mg/dL 11/17/2023 4:38 PM CDT UR LABORATORY POC Blood, Capillary BLOOD SPECIMEN / Unknown 11/17/2023 3:28 PM CDT 11/17/2023 4:38 PM CDT Darrius MORILLO - ANTONIA POCT UR LABORATORY POC [facility] [address] [place] [address], [address] [phone] * (ABNORMAL) Glucose by meter (11/17/2023 2:30 PM CDT) GLUCOSE BY METER POCT 177(H) 70 - 99 mg/dL 11/18/2023 8:10 AM CDT UR LABORATORY POC Blood, Capillary BLOOD SPECIMEN / Unknown 11/17/2023 2:30 PM CDT 11/18/2023 8:10 AM CDT Darrius Menezes BEMARIA M POCT UR LABORATORY POC [facility] [address] [place] [address], [address] [phone] documented in this encounter Visit Diagnoses Diagnosis DKA (diabetic ketoacidosis) (H) Type II or unspecified type diabetes mellitus with ketoacidosis, not stated as uncontrolled documented in this encounter Administered Medications Inactive Administered Medications - up to 3 most recent administrations Medication Order MAR Action Action Date Dose Rate Site acetaminophen (TYLENOL) tablet 650 mg 650 mg, Oral, EVERY 6 HOURS PRN, mild pain, fever, headaches, Starting on Wed11/17/23 at 1914, Maximum acetaminophen dose from all sources = 75 mg/kg/day not to exceed 4 grams/day. benzocaine 20% (HURRICAINE/TOPEX) 20 % spray 0.5-1 mL 0.5-1 mL (1-2 spray), Mouth/Throat, EVERY 2 HOURS PRN, sore throat, Starting on Wed11/17/23 at 2057 $Given 11/17/2023 10:41 PM CDT 1 mL dextrose 5% and 0.45% NaCl + KCl 20 mEq/L infusion at 125 mL/hr, Intravenous, CONTINUOUS, Start when SERUM GLUCOSE is below 200 mg/dL and discontinue 1/2 NS + 20 mEq KCL/L infusion., Starting on Wed11/17/23 at 1530, Until Deisy 11/18/23 at 1722 $New Bag 11/18/2023 9:35 AM CDT 125 mL/hr Rate/Dose Verify 11/18/2023 8:01 AM CDT 125 mL/ hr $New Bag 11/18/2023 1:31 AM CDT 125 mL/hr dextrose 50 % injection 25-50 mL 25-50 mL, Intravenous, EVERY 15 MIN PRN, low blood sugar, Administer over 1-5 Minutes, Starting on Wed11/17/23 at 1501, Use if have IV access, BG less than 70 mg/dL and meet dose criteria below: Dose if conscious and alert (or disorientated) and NPO = 25 mL Dose if unconscious / not alert = 50 mL Give first dose for initial blood glucose less than 70 mg/dL. If blood glucose at 15 minute recheck is less than or equal to 80 mg/dL continue to administer carbohydrate treatment every 15 minutes, as needed, based on blood glucose and assessment parameters until blood glucose level is above 80 mg/dL x 2 consecutive 15 minute checks. glucagon injection 1 mg 1 mg, Subcutaneous, EVERY 15 MIN PRN, low blood sugar, May repeat x 1 only, Starting on Wed11/17/23 at 1501, May give SQ or IM. ONLY use glucagon IF patient has NO IV access AND is UNABLE to swallow AND blood glucose is LESS than or EQUAL to 50 mg/dL. glucose gel 15-30 g 15-30 g, Oral, EVERY 15 MIN PRN, low blood sugar, Starting on Wed11/17/23 at 1501, Give first dose for initial blood glucose less than 70 mg/dL per the dosing instructions below. If blood glucose at 15 minute rechecks is still less than or equal to 80 mg/dL, continue to administer doses per blood glucose parameters every 15 minutes, as needed, until blood glucose level is at or above 80 mg/dL x 2 consecutive 15 minute checks. Dosing Instructions: ~If patient is conscious and able to swallow and NO enteral tube For initial BG 51-69mg/dL OR 15 minute recheck BG 51- 80 mg/dL - give 15 g For BG less than or equal to 50 mg/dL - give 30 g ~ If Enteral tube For initial BG 51-69mg/dL OR 15 minute recheck BG 51- 80 mg/dL - give apple juice 120 mL (4 oz or 15 g of CHO) via enteral tube For BG less than or equal to 50 mg/dL - Give apple juice 240 mL (8 oz or 30 g of CHO) via enteral tube ~Oral gel is preferable for conscious and able to swallow patient. ~IF gel unavailable or patient refuses may provide apple juice per Enteral tube dosing instructions. Document juice on I and O flowsheet. insulin aspart (NovoLOG) injection (RAPID ACTING) Subcutaneous, 3 TIMES DAILY WITH MEALS, First dose on Wed11/18/23 at 1330, DOSE: 1 units per 10 grams of carbohydrate. Please give even when on insulin drip.Only chart total amount of units given. Administering insulin within 5 minutes of the start of the meal is ideal. Administer insulin no more than 30 minutes after the start of the meal, unless directed otherwise by provider. If pre-prandial glucose is less than 60 mg/dL, treat per hypoglycemia protocol prior to administration of mealtime insulin dose. insulin aspart (NovoLOG) injection (RAPID ACTING) Subcutaneous, WITH SNACKS OR SUPPLEMENTS, high blood sugar, Starting on Wed11/18/23 at 1309, DOSE: 1 units per 10 grams of carbohydrate. Please give even when on insulin drip.Only chart total amount of units given. Administering insulin within 5 minutes of the start of the meal is ideal. Administer insulin no more than 30 minutes after the start of the meal, unless directed otherwise by provider. If pre-prandial glucose is less than 60 mg/dL, treat per hypoglycemia protocol prior to administration of mealtime insulin dose. insulin glargine (LANTUS PEN) injection 18 Units 18 Units, Subcutaneous, ONCE, On Wed11/18/23 at 1530, For 1 dose insulin regular (MYXREDLIN) 1 unit/mL infusion Intravenous, CONTINUOUS, Starting on Wed11/17/23 at 1530, DO NOT start insulin infusion until Serum Potassium level is greater than or equal to 3.3 mmol/L. Rate of blood glucose fall should be 50-70 mg/dL/hr. Initiate drip with Algorithm 1 Move to HIGHER number algorithm If blood glucose greater than 200 mg/dL AND blood glucose has not fallen by at least 50 mg/dL within the previous hour. Notify provider if already at Algorithm 4., Move to LOWER number algorithm If BG less than 100 mg/dL x 2 consecutive readings. Notify provider if already at Algorithm 1. *When DKA has resolved. Indication DKA is resolved are closing of anion GAP, normalization of pH/ resolution of acidosis, blood ketones are cleared. For CKD patient's anion GAP and pH have returned to historic levels and patient is tolerating PO intake, Contact provider to transition to SQ insulin Rate/Dose Change 11/18/2023 2:00 PM CDT Rate/Dose Change 11/18/2023 12:50 PM CDT $Started 11/18/2023 12:01 PM CDT levothyroxine (SYNTHROID/LEVOTHROID) tablet 112 mcg 112 mcg, Oral, DAILY, First dose on Wed11/17/23 at 1530, Separate oral administration of iron- or calcium-containing products and levothyroxine by at least 4 hours. $Given 11/18/2023 8:03 AM CDT 112 mcg ondansetron (ZOFRAN ODT) ODT tab 4 mg 4 mg, Oral, EVERY 6 HOURS PRN, nausea, vomiting, Starting on Wed11/17/23 at 1914, With dry hands, peel back foil backing and gently remove tablet. Do not push oral disintegrating tablet through foil backing. Administer immediately on tongue and oral disintegrating tablet dissolves in seconds, then swallow with saliva. Liquid not required. $Given 11/18/2023 1:09 PM CDT 4 mg $Given 11/18/2023 2:21 AM CDT 4 mg potassium chloride (KAYCIEL) solution 20 mEq 20 mEq, Oral, ONCE, On Deisy 11/18/23 at 0230, For 1 dose, Recommend diluting each 15 mL of 10% solution with at least 3 ounces of liquid for administration. $Given 11/18/2023 2:39 AM CDT 20 mEq senna-docusate (SENOKOT-S/PERICOLACE) 8.6-50 MG per tablet 1 tablet 1 tablet, Oral, 2 TIMES DAILY PRN, constipation, Starting on Wed11/17/23 at 1501, If no bowel movement in 24 hours, increase to 2 tablets by mouth. IF more than 1 constipation PRN medication is ordered, administer step-bradford as indicated, moving to the next step ONLY if prior step ineffective. Step 1: senna-docusate (SENOKOT-S; PERICOLACE) OR bisacodyl (DULCOLAX) EC tablet Step 2: polyethylene glycol (MIRALAX/GLYCOLAX) Step 3: bisacodyl (DULCOLAX) suppository Step 4: enema Hold for loose stools. senna-docusate (SENOKOT-S/PERICOLACE) 8.6-50 MG per tablet 2 tablet 2 tablet, Oral, 2 TIMES DAILY PRN, constipation, Starting on Wed11/17/23 at 1501, IF more than 1 constipation PRN medication is ordered, administer step-bradford as indicated, moving to the next step ONLY if prior step ineffective. Step 1: senna-docusate (SENOKOT-S; PERICOLACE) OR bisacodyl (DULCOLAX) EC tablet Step 2: polyethylene glycol (MIRALAX/GLYCOLAX) Step 3: bisacodyl (DULCOLAX) suppository Step 4: enema Hold for loose stools. sodium chloride (PF) 0.9% PF flush 3 mL 3 mL, Intracatheter, EVERY 8 HOURS, First dose on Wed11/17/23 at 1530, to lock peripheral IV dormant line $Given 11/18/2023 8:03 AM CDT 3 mLs sodium phosphate 15 mmol in sodium chloride 0.9 % 250 mL intermittent infusion 15 mmol, Intravenous, ONCE, Administer over 6 Hours, On Wed11/17/23 at 1800, For 1 dose, Phosphorus level LESS than 1.1 mg/dL Recheck phosphorus level 2-4 hours following the end of the infusion. Ordered from the Phosphorus replacement order set. Each mmol of phosphate provides 1.33 mEq of Sodium. Multiply the patient's phosphate dose by 1.33 to determine the amount of sodium in this dose., Phosphorus Replacement: Phosphorus level LESS than 1.1 and CrCl GREATER than or EQUAL to 30 mL/min., Recheck: Phosphorus level 2-4 hours after end of infusion $Given 11/17/2023 6:35 PM CDT 15 mmol sodium phosphate 15 mmol in sodium chloride 0.9 % 250 mL intermittent infusion 15 mmol, Intravenous, ONCE, Administer over 6 Hours, On Wed11/18/23 at 0800, For 1 dose, Phosphorus level LESS than 1.1 mg/dL Recheck phosphorus level 2-4 hours following the end of the infusion. Ordered from the Phosphorus replacement order set. Each mmol of phosphate provides 1.33 mEq of Sodium. Multiply the patient's phosphate dose by 1.33 to determine the amount of sodium in this dose., Phosphorus Replacement: Phosphorus level LESS than 1.1 and CrCl GREATER than or EQUAL to 30 mL/min., Recheck: Phosphorus level 2-4 hours after end of infusion $Given 11/18/2023 8:04 AM CDT 15 mmol documented in this encounter Active and Recently Administered Medications Times are shown in CDT. Scheduled Medication Order 11/16/2023 11/17/2023 11/18/2023 insulin aspart (NovoLOG) injection (RAPID ACTING) Subcutaneous, 3 TIMES DAILY WITH MEALS, First dose on Wed11/18/23 at 1330, DOSE: 1 units per 10 grams of carbohydrate. Please give even when on insulin drip.Only chart total amount of units given. Administering insulin within 5 minutes of the start of the meal is ideal. Administer insulin no more than 30 minutes after the start of the meal, unless directed otherwise by provider. If pre-prandial glucose is less than 60 mg/dL, treat per hypoglycemia protocol prior to administration of mealtime insulin dose. 1330 (Canceled Entry - Provider: Orders Generic Provider - Comment: Automatically canceled at discontinue of medication order) insulin glargine (LANTUS PEN) injection 18 Units 18 Units, Subcutaneous, ONCE, On Wed11/18/23 at 1530, For 1 dose 1530 (Canceled Entry - Provider: Orders Generic Provider - Comment: Automatically canceled at discontinue of medication order) levothyroxine (SYNTHROID/LEVOTHROID) tablet 112 mcg 112 mcg, Oral, DAILY, First dose on Wed11/17/23 at 1530, Separate oral administration of iron- or calcium-containing products and levothyroxine by at least 4 hours. 1802 (Not Given - Provider: Lauryn Fry RN - Reason: Other - Comment: nauseous/spitting up) 0803 ($Given - Provider: Otilio Sellers RN) potassium chloride (KAYCIEL) solution 20 mEq (COMPLETED) 20 mEq, Oral, ONCE, On Wed11/18/23 at 0230, For 1 dose, Recommend diluting each 15 mL of 10% solution with at least 3 ounces of liquid for administration. 0239 ($Given - Provi kelechi: Vicki Cohen RN) sodium chloride (PF) 0.9% PF flush 3 mL 3 mL, Intracatheter, EVERY 8 HOURS, First dose on Wed11/17/23 at 1530, to lock peripheral IV dormant line 1650 (Not Given - Provider: Lauryn Fry RN - Reason: IV Infusing)2305 (Canceled Entry - Provider: Vicki Cohen RN) 0803 ($Given - Provider: Otilio Sellers RN)1530 (Canceled Entry - Provider: Orders Generic Provider - Comment: Automatically canceled at discontinue of medication order) sodium phosphate 15 mmol in sodium chloride 0.9 % 250 mL intermittent infusion (COMPLETED) 15 mmol, Intravenous, ONCE, Administer over 6 Hours, On Wed11/17/23 at 1800, For 1 dose, Phosphorus level LESS than 1.1 mg/dL Recheck phosphorus level 2-4 hours following the end of the infusion. Ordered from the Phosphorus replacement order set. Each mmol of phosphate provides 1.33 mEq of Sodium. Multiply the patient's phosphate dose by 1.33 to determine the amount of sodium in this dose., Phosphorus Replacement: Phosphorus level LESS than 1.1 and CrCl GREATER than or EQUAL to 30 mL/min., Recheck: Phosphorus level 2-4 hours after end of infusion 1835 ($Given - Provider: Lauryn Fry RN) sodium phosphate 15 mmol in sodium chloride 0.9 % 250 mL intermittent infusion (COMPLETED) 15 mmol, Intravenous, ONCE, Administer over 6 Hours, On Deisy 11/18/23 at 0800, For 1 dose, Phosphorus level LESS than 1.1 mg/dL Recheck phosphorus level 2-4 hours following the end of the infusion. Ordered from the Phosphorus replacement order set. Each mmol of phosphate provides 1.33 mEq of Sodium. Multiply the patient's phosphate dose by 1.33 to determine the amount of sodium in this dose., Phosphorus Replacement: Phosphorus level LESS than 1.1 and CrCl GREATER than or EQUAL to 30 mL/min., Recheck: Phosphorus level 2-4 hours after end of infusion 0804 ($Given - Provi kelechi: Otilio Sellers RN) Continuous Medication Order 11/16/2023 11/17/2023 11/18/2023 0.45% sodium chloride + KCl 20 mEq/L infusion at 125 mL/hr, Intravenous, CONTINUOUS, Change to D5W and 1/2 NS IV soln + 20 mEq KCL/L infusion when SERUM GLUCOSE is below 200 mg/dL., Starting on Wed11/17/23 at 1530, Until Wed11/18/23 at 1722 1735 (Canceled Entry - Provider: Lauryn Fry RN) dextrose 5% and 0.45% NaCl + KCl 20 mEq/L infusion at 125 mL/hr, Intravenous, CONTINUOUS, Start when SERUM GLUCOSE is below 200 mg/dL and discontinue 1/2 NS + 20 mEq KCL/L infusion., Starting on Wed11/17/23 at 1530, Until Deisy 11/18/23 at 1722 1526 ($New Bag - Provider: Lauryn Fry RN)2058 (Rate/Dose Change - Provider: Vicki Cohen RN) 0131 ($New Bag - Provider: Vicki Cohen RN)0801 (Rate/Dose Verify - Provider: Otilio Sellers RN)0935 ($New Bag - Provider: Otilio Sellers RN) insulin regular (MYXREDLIN) 1 unit/mL infusion Intravenous, CONTINUOUS, Starting on Wed11/17/23 at 1530, DO NOT start insulin infusion until Serum Potassium level is greater than or equal to 3.3 mmol/L. Rate of blood glucose fall should be 50-70 mg/dL/hr. Initiate drip with Algorithm 1 Move to HIGHER number algorithm If blood glucose greater than 200 mg/dL AND blood glucose has not fallen by at least 50 mg/dL within the previous hour. Notify provider if already at Algorithm 4., Move to LOWER number algorithm If BG less than 100 mg/dL x 2 consecutive readings. Notify provider if already at Algorithm 1. *When DKA has resolved. Indication DKA is resolved are closing of anion GAP, normalization of pH/ resolution of acidosis, blood ketones are cleared. For CKD patient's anion GAP and pH have returned to historic levels and patient is tolerating PO intake, Contact provider to transition to SQ insulin 1523 (Rate/Dose Verify - Provider: Lauryn Fry RN - Comment: verifying setup upon admission)1530 (Rate/Dose Change - Provider: Lauryn Fry RN - Comment: Balg 4)1633 (Rate/Dose Change - Provider: Lauryn Fry RN - Comment: Balg 4)1735 (Rate/Dose Verify - Provider: Lauryn Fry RN - Comment: BALG 4)1840 (Rate/Dose Change - Provider: Lauryn Fry RN - Comment: bALG 4)1935 (Rate/Dose Change - Provider: Vicki Cohen RN - Comment: ALG 4 114 BG)2036 (Rate/Dose Verify - Provider: Vicki Cohen RN)2144 (Rate/Dose Verify - Provider: Vicki Cohen RN - Comment: 106 Alg 4)2242 (Rate/Dose Verify - Provider: Vicki Cohen RN)2332 (Rate/Dose Verify - Provider: Vicki Cohen RN - Comment: Alg 4 BG 119) 0013 (Rate/Dose Verify - Provider: Vicki Cohen RN - Comment: BG 122 ALG 4)0114 (Rate/Dose Change - Provider: Vicki Cohen RN - Comment: bg 98)0214 (Rate/Dose Verify - Provider: Vicki Cohen RN - Comment: BG 92 ALG 4)0302 (Rate/Dose Change - Provider: Vicki Cohen RN - Comment: Alg 3 BG 106)0410 (Rate/Dose Change - Provider: Vicki Cohen RN - Comment: ALG 3 BG 147)0526 (Rate/Dose Change - Provider: Vicki Cohen RN - Comment: ALG 3 BG 161)0527 ($New Bag - Provider: Vicki Cohen RN)0631 (Rate/Dose Change - Provider: Vicki Cohen RN - Comment: BG 142 ALG 3)0712 (Rate/Dose Change - Provider: Vicki Cohen RN - Comment: bg 127 alg3)0802 (Rate/Dose Verify - Provider: Otilio Sellers RN)1014 (Stopped - Provider: Otilio Sellers RN - Comment: BG 78)1201 ($Started - Provider: Otilio Sellers RN - Comment: 3 units per hour)1250 (Rate/Dose Change - Provider: Otilio Sellers RN - Comment: 4 units per hour)1400 (Rate/Dose Change - Provider: Otilio Sellers RN - Comment: 3 units) PRN Medication Order 11/16/2023 11/17/2023 11/18/2023 acetaminophen (TYLENOL) tablet 650 mg 650 mg, Oral, EVERY 6 HOURS PRN, mild pain, fever, headaches, Starting on Wed11/17/23 at 1914, Maximum acetaminophen dose from all sources = 75 mg/kg/day not to exceed 4 grams/day. benzocaine 20% (HURRICAINE/TOPEX) 20 % spray 0.5-1 mL 0.5-1 mL (1-2 spray), Mouth/Throat, EVERY 2 HOURS PRN, sore throat, Starting on Wed11/17/23 at 2057 2241 ($Given - Provider: Vicki Cohen RN) calcium carbonate (TUMS) chewable tablet 1,000 mg 1,000 mg, Oral, 4 TIMES DAILY PRN, heartburn, Starting on Wed11/17/23 at 1501 dextrose 50 % injection 25-50 mL(Linked Group 1) 25-50 mL, Intravenous, EVERY 15 MIN PRN, low blood sugar, Administer over 1-5 Minutes, Starting on Wed11/17/23 at 1501, Use if have IV access, BG less than 70 mg/dL and meet dose criteria below: Dose if conscious and alert (or disorientated) and NPO = 25 mL Dose if unconscious / not alert = 50 mL Give first dose for initial blood glucose less than 70 mg/dL. If blood glucose at 15 minute recheck is less than or equal to 80 mg/dL continue to administer carbohydrate treatment every 15 minutes, as needed, based on blood glucose and assessment parameters until blood glucose level is above 80 mg/dL x 2 consecutive 15 minute checks. glucagon injection 1 mg(Linked Group 1) 1 mg, Subcutaneous, EVERY 15 MIN PRN, low blood sugar, May repeat x 1 only, Starting on Wed11/17/23 at 1501, May give SQ or IM. ONLY use glucagon IF patient has NO IV access AND is UNABLE to swallow AND blood glucose is LESS than or EQUAL to 50 mg/dL. glucose gel 15-30 g(Linked Group 1) 15-30 g, Oral, EVERY 15 MIN PRN, low blood sugar, Starting on Wed11/17/23 at 1501, Give first dose for initial blood glucose less than 70 mg/dL per the dosing instructions below. If blood glucose at 15 minute rechecks is still less than or equal to 80 mg/dL, continue to administer doses per blood glucose parameters every 15 minutes, as needed, until blood glucose level is at or above 80 mg/dL x 2 consecutive 15 minute checks. Dosing Instructions: ~If patient is conscious and able to swallow and NO enteral tube For initial BG 51-69mg/dL OR 15 minute recheck BG 51- 80 mg/dL - give 15 g For BG less than or equal to 50 mg/dL - give 30 g ~ If Enteral tube For initial BG 51-69mg/dL OR 15 minute recheck BG 51- 80 mg/dL - give apple juice 120 mL (4 oz or 15 g of CHO) via enteral tube For BG less than or equal to 50 mg/dL - Give apple juice 240 mL (8 oz or 30 g of CHO) via enteral tube ~Oral gel is preferable for conscious and able to swallow patient. ~IF gel unavailable or patient refuses may provide apple juice per Enteral tube dosing instructions. Document juice on I and O flowsheet. insulin aspart (NovoLOG) injection (RAPID ACTING) Subcutaneous, WITH SNACKS OR SUPPLEMENTS, high blood sugar, Starting on Wed11/18/23 at 1309, DOSE: 1 units per 10 grams of carbohydrate. Please give even when on insulin drip.Only chart total amount of units given. Administering insulin within 5 minutes of the start of the meal is ideal. Administer insulin no more than 30 minutes after the start of the meal, unless directed otherwise by provider. If pre-prandial glucose is less than 60 mg/dL, treat per hypoglycemia protocol prior to administration of mealtime insulin dose. lidocaine (LMX4) cream Topical, EVERY 1 HOUR PRN, pain, with VAD insertion, Starting on Wed11/17/23 at 1501, Apply at least 30 minutes prior to VAD insertion in divided doses as needed for size of site for insertion. MAX Dose: 2.5 g (?? of 5 g tube) Do NOT give if patient has a history of allergy to any local anesthetic or any ramsey product. Do NOT use both lidocaine intradermal/subcutaneous injection and the lidocaine cream on the same site. lidocaine 1 % 0.1-1 mL 0.1-1 mL, Other, EVERY 1 HOUR PRN, mild pain with VAD insertion, Starting on Wed11/17/23 at 1501, MAX dose 1 mL subcutaneous OR intradermal along the side of the vein in divided doses as needed for VAD insertion. Do NOT give if patient has a history of allergy to any local anesthetic or any ramsey product. Do NOT use both lidocaine intradermal/subcutaneous injection and the lidocaine cream on the same site. ondansetron (ZOFRAN ODT) ODT tab 4 mg 4 mg, Oral, EVERY 6 HOURS PRN, nausea, vomiting, Starting on Wed11/17/23 at 1914, With dry hands, peel back foil backing and gently remove tablet. Do not push oral disintegrating tablet through foil backing. Administer immediately on tongue and oral disintegrating tablet dissolves in seconds, then swallow with saliva. Liquid not required. 0221 ($Given - Provider: Vicki Cohen RN)1309 ($Given - Provider: Otilio Sellers RN) senna-docusate (SENOKOT-S/PERICOLACE) 8.6-50 MG per tablet 1 tablet(Linked Group 2) 1 tablet, Oral, 2 TIMES DAILY PRN, constipation, Starting on Wed11/17/23 at 1501, If no bowel movement in 24 hours, increase to 2 tablets by mouth. IF more than 1 constipation PRN medication is ordered, administer step-bradford as indicated, moving to the next step ONLY if prior step ineffective. Step 1: senna-docusate (SENOKOT-S; PERICOLACE) OR bisacodyl (DULCOLAX) EC tablet Step 2: polyethylene glycol (MIRALAX/GLYCOLAX) Step 3: bisacodyl (DULCOLAX) suppository Step 4: enema Hold for loose stools. senna-docusate (SENOKOT-S/PERICOLACE) 8.6-50 MG per tablet 2 tablet(Linked Group 2) 2 tablet, Oral, 2 TIMES DAILY PRN, constipation, Starting on Wed11/17/23 at 1501, IF more than 1 constipation PRN medication is ordered, administer step-bradford as indicated, moving to the next step ONLY if prior step ineffective. Step 1: senna-docusate (SENOKOT-S; PERICOLACE) OR bisacodyl (DULCOLAX) EC tablet Step 2: polyethylene glycol (MIRALAX/GLYCOLAX) Step 3: bisacodyl (DULCOLAX) suppository Step 4: enema Hold for loose stools. sodium chloride (PF) 0.9% PF flush 3 mL 3 mL, Intracatheter, EVERY 1 MIN PRN, line flush, other, to ensure patency or to lock dormant line, Starting on Wed11/17/23 at 1501 Linked Groups Order Group 1: glucose gel 15-30 gJump to med 15-30 g, Oral, EVERY 15 MIN PRN, low blood sugar, Starting on Wed11/17/23 at 1501, Give first dose for initial blood glucose less than 70 mg/dL per the dosing instructions below. If blood glucose at 15 minute rechecks is still less than or equal to 80 mg/dL, continue to administer doses per blood glucose parameters every 15 minutes, as needed, until blood glucose level is at or above 80 mg/dL x 2 consecutive 15 minute checks. Dosing Instructions: ~If patient is conscious and able to swallow and NO enteral tube For initial BG 51-69mg/dL OR 15 minute recheck BG 51- 80 mg/dL - give 15 g For BG less than or equal to 50 mg/dL - give 30 g ~ If Enteral tube For initial BG 51-69mg/dL OR 15 minute recheck BG 51- 80 mg/dL - give apple juice 120 mL (4 oz or 15 g of CHO) via enteral tube For BG less than or equal to 50 mg/dL - Give apple juice 240 mL (8 oz or 30 g of CHO) via enteral tube ~Oral gel is preferable for conscious and able to swallow patient. ~IF gel unavailable or patient refuses may provide apple juice per Enteral tube dosing instructions. Document juice on I and O flowsheet. Or dextrose 50 % injection 25-50 mLJump to med 25-50 mL, Intravenous, EVERY 15 MIN PRN, low blood sugar, Administer over 1-5 Minutes, Starting on Wed11/17/23 at 1501, Use if have IV access, BG less than 70 mg/dL and meet dose criteria below: Dose if conscious and alert (or disorientated) and NPO = 25 mL Dose if unconscious / not alert = 50 mL Give first dose for initial blood glucose less than 70 mg/dL. If blood glucose at 15 minute recheck is less than or equal to 80 mg/dL continue to administer carbohydrate treatment every 15 minutes, as needed, based on blood glucose and assessment parameters until blood glucose level is above 80 mg/dL x 2 consecutive 15 minute checks. Or glucagon injection 1 mgJump to med 1 mg, Subcutaneous, EVERY 15 MIN PRN, low blood sugar, May repeat x 1 only, Starting on Wed11/17/23 at 1501, May give SQ or IM. ONLY use glucagon IF patient has NO IV access AND is UNABLE to swallow AND blood glucose is LESS than or EQUAL to 50 mg/dL. Group 2: senna-docusate (SENOKOT-S/PERICOLACE) 8.6-50 MG per tablet 1 tabletJump to med 1 tablet, Oral, 2 TIMES DAILY PRN, constipation, Starting on Wed11/17/23 at 1501, If no bowel movement in 24 hours, increase to 2 tablets by mouth. IF more than 1 constipation PRN medication is ordered, administer step-bradford as indicated, moving to the next step ONLY if prior step ineffective. Step 1: senna-docusate (SENOKOT-S; PERICOLACE) OR bisacodyl (DULCOLAX) EC tablet Step 2: polyethylene glycol (MIRALAX/GLYCOLAX) Step 3: bisacodyl (DULCOLAX) suppository Step 4: enema Hold for loose stools. Or senna-docusate (SENOKOT-S/PERICOLACE) 8.6-50 MG per tablet 2 tabletJump to med 2 tablet, Oral, 2 TIMES DAILY PRN, constipation, Starting on Wed11/17/23 at 1501, IF more than 1 constipation PRN medication is ordered, administer step-bradford as indicated, moving to the next step ONLY if prior step ineffective. Step 1: senna-docusate (SENOKOT-S; PERICOLACE) OR bisacodyl (DULCOLAX) EC tablet Step 2: polyethylene glycol (MIRALAX/GLYCOLAX) Step 3: bisacodyl (DULCOLAX) suppository Step 4: enema Hold for loose stools. documented in this encounter Care Teams Interpersonal Communications Professor Relationship Specialty Start Date End Date [facility], [place] [id number] [address] [place], [place] [id number] PCP - General 05/18/17 documented as of this encounter
--- OUTSIDE RECORDS SUMMARY | 2023-11-26 13:35 | XMS_ITS | Encounter Summary ---
Author Organization [facility] Address [address] [place] [address]. [place] [address] Care Team Providers Care Field Care Coordinator Name Role Phone Manuel [place] Primary Care Provider Encounter Details Date Type Department Care Team (Latest Contact Info) Description 11/17/2023 Travel Social History Tobacco Use Types Packs/Day Years [...] on file documented as of this encounter Plan of Treatment Not on file documented as of this encounter Visit Diagnoses Not on filedocumented in this encounter Care Teams Field Care Coordinator Relationship Specialty Start Date End Date [facility], [place] [id number] [facility] [place], [place] [phone] PCP - General 05/18/17 documented as of this encounter
== END 2023-11-26 13:30 | disposition home or self-care (01) ==
PROVIDERS: PCP Family Medicine; Visit Provider Family Medicine
DX: E03.9 Hypothyroidism, unspecified (principal); Z13.220 Encounter for screening for lipoid disorders
CPT/HCPCS: 80061; 84439; 84443